=== PATIENT | female | born 1945 | race African-American/Black ===

== ENCOUNTER 2016-11-06 12:34 | Inpatient (IN) | payer MEDICARE, MEDICAID ==
[~2016-11-06] VITALS: Ht 160 cm; Wt 63.2 kg
[~2016-11-06 12:34] MED LIST: PANT40TA25 PO; TRAM50TA4 PO
[2016-11-06 13:24] LABS: EOSINOPHILS % (AUTO) 7.7 % (1.0-6.0); HEMATOCRIT 37.5 % (36-46); HEMOGLOBIN 12.5 g/dL (12.0-16.0); LYMPHOCYTES # (AUTO) 1.3 K/uL (1.0-4.8); LYMPHOCYTES % (AUTO) 23.4 % (22.0-44.0); MEAN CORPUSCULAR HGB CONC 33.3 G/dL (31.0-37.0); MEAN CORPUSCULAR VOLUME 87 fL (80-100); MONOCYTES # (AUTO) 0.7 K/uL (0.1-1.0); MONOCYTES % (AUTO) 13.3 % (2.0-9.0); NEUTROPHILS # (AUTO) 2.9 K/uL (1.8-7.7); NEUTROPHILS % (AUTO) 54.6 % (40.0-70.0); PLATELET COUNT (AUTO) 233 K/uL (150-450); RED CELL DISTRIBUTION WIDTH 13.9 % (11.5-14.5); WHITE BLOOD COUNT (AUTO) 5.4 K/uL (4.5-11.0)
[2016-11-06 13:35] LABS: INR 1.1 (0.9-1.1); PROTHROMBIN TIME 11.1 SEC (9.4-11.6)
[2016-11-06 13:41] LABS: ANION GAP 6 mmol/L (8-16); CALCIUM, TOTAL 9.9 mg/dL (8.8-10.5); CARBON DIOXIDE 28 mmol/L (22-29); CHLORIDE 101 mmol/L (98-107); CREATININE 0.78 mg/dL (0.60-1.30); GLOMERULAR FILTR. RATE CALC > 60 mL/min (>60); POTASSIUM 5.3 mmol/L (3.5-5.1); SODIUM SERUM 135 mmol/L (136-145); UREA NITROGEN, BLOOD 18 mg/dL (7-18)
[2016-11-06 13:49] LABS: ALANINE AMINOTRANSFERASE 26 U/L (12-78); ALBUMIN 3.8 g/dL (3.4-5.0); ASPARTATE AMINOTRANSFERASE 18 U/L (15-37); BILIRUBIN,TOTAL 0.4 mg/dL (0.1-1.0); TOTAL PROTEIN, SERUM 7.9 g/dL (6.4-8.2)
[2016-11-06 13:50] LABS: RBC MORPHOLOGY COMMENT NORMAL RBC MORPH
[2016-11-06 15:50] LABS: APPEARANCE,URINE CLEAR (CLEAR); GLUCOSE, URINE (UA) NEGATIVE (NEGATIVE); KETONES,URINE NEGATIVE (NEGATIVE); LEUKOCYTE ESTERASE ,URINE NEGATIVE (NEGATIVE); OCCULT BLOOD,URINE NEGATIVE (NEGATIVE); PH,URINE 6.5 (5.0-8.0); PROTEIN,URINE NEGATIVE (NEGATIVE)
[2016-11-06 15:52] LABS: ADD UA MICROSCOPIC NO
[2016-11-06] MEDS ORDERED: POTASSIUM CHLORIDE 20 MEQ ER TABLET PO ONE (16:45)
[2016-11-06] MEDS ORDERED: NITROGLYCERIN 2% (1 GM=INCH) PACKET TP ONE (17:45)
[2016-11-06] MEDS ORDERED: ASPIRIN 81 MG CHEWABLE TABLET PO ONE (17:45)
[2016-11-06] MEDS ORDERED: ACETAMINOPHEN 325 MG TABLET PO PRN (18:45)
[2016-11-06] MEDS ORDERED: BISACODYL 10 MG RECTAL RECTAL SUPPOSITORY PR PRN (18:45)
[2016-11-06] MEDS ORDERED: MAGNESIUM HYDROXIDE SUSPENSION 30 ML UDCUP PO PRN (18:45)
[2016-11-06] MEDS ORDERED: PANTOPRAZOLE SODIUM 40 MG DR TABLET PO ONE (18:45)
[2016-11-06] MEDS ORDERED: SODIUM POLYSTYRENE SULFONATE 15 GM/60 ML SUSPENSION BOTTLE PR ONE (18:45)
[2016-11-06] MEDS ORDERED: ONDANSETRON HCL 4 MG/2 ML VIAL IVP PRN (18:45)
[2016-11-06] MEDS ORDERED: ZOLPIDEM TARTRATE 5 MG TABLET PO PRN (18:45)
[2016-11-06] MEDS ORDERED: DICYCLOMINE HCL 10 MG/ML 2 ML AMP IM ONE (18:45)
[2016-11-06 18:51] LABS: ANION GAP 2 mmol/L (8-16); CALCIUM, TOTAL 9.3 mg/dL (8.8-10.5); CARBON DIOXIDE 28 mmol/L (22-29); CHLORIDE 100 mmol/L (98-107); CREATININE 0.82 mg/dL (0.60-1.30); GLOMERULAR FILTR. RATE CALC > 60 mL/min (>60); SODIUM SERUM 130 mmol/L (136-145); UREA NITROGEN, BLOOD 15 mg/dL (7-18)
[2016-11-06 18:57] LABS: ALANINE AMINOTRANSFERASE 27 U/L (12-78); ALBUMIN 3.7 g/dL (3.4-5.0); ASPARTATE AMINOTRANSFERASE 19 U/L (15-37); BILIRUBIN,TOTAL 0.5 mg/dL (0.1-1.0); TOTAL PROTEIN, SERUM 8.2 g/dL (6.4-8.2)
[2016-11-06] MEDS ORDERED: ONDANSETRON HCL 4 MG/2 ML VIAL IVP ONE (19:30)
[2016-11-06] MEDS ORDERED: MORPHINE SULFATE 4 MG/ML SYRINGE IVP ONE (19:30)
[2016-11-06] MEDS ORDERED: COMB5OS OU ×2 (21:14→21:19)
[2016-11-06] MEDS ORDERED: XALA2.5OS OU (21:15)
[2016-11-06 21:23] VITALS: BP 136/93
[2016-11-06] MEDS ORDERED: INFLUENZA VIRUS VACCINE QVS 2016-17 (3YR+)/PF 60 MCG/0.5 ML SYRINGE IM ONE (22:00)
[2016-11-06] MEDS ORDERED: -PHARMACY VACCINE NOTE- MISC ONE ×2 (22:00)
[2016-11-06] MEDS ORDERED: BARIUM SULFATE 0.1% SUSPENSION 450 ML BOTTLE ONE ×2 (23:12→23:13)
[2016-11-06 23:28] VITALS: BP 124/79
[2016-11-07] MEDS ORDERED: SODIUM CHLORIDE 0.9% 100 ML ONE (00:15)
[2016-11-07] MEDS ORDERED: IOVERSOL 350 MG/ML 100 ML VIAL ONE (00:15)
[2016-11-07] MEDS: HEPARIN SODIUM,PORCINE 5,000 UNITS/ML VIAL SQ SCH ×4 (00:34→23:07)
[2016-11-07 05:22] VITALS: BP 114/61
[2016-11-07 06:43] LABS: BASOPHILS % (AUTO) 0.6 % (0.0-2.0); EOSINOPHILS % (AUTO) 8.7 % (1.0-6.0); HEMATOCRIT 36.1 % (36-46); HEMOGLOBIN 11.7 g/dL (12.0-16.0); LYMPHOCYTES # (AUTO) 1.5 K/uL (1.0-4.8); LYMPHOCYTES % (AUTO) 32.5 % (22.0-44.0); MEAN CORPUSCULAR HEMOGLOBIN 28.5 pg (26.0-34.0); MEAN CORPUSCULAR HGB CONC 32.5 G/dL (31.0-37.0); MEAN CORPUSCULAR VOLUME 88 fL (80-100); MONOCYTES # (AUTO) 0.6 K/uL (0.1-1.0); MONOCYTES % (AUTO) 13.2 % (2.0-9.0); PLATELET COUNT (AUTO) 214 K/uL (150-450); RED BLOOD CELL COUNT(AUTO) 4.11 MIL/uL (4.00-5.20); RED CELL DISTRIBUTION WIDTH 13.9 % (11.5-14.5); WHITE BLOOD COUNT (AUTO) 4.5 K/uL (4.5-11.0)
[2016-11-07 06:55] LABS: ALANINE AMINOTRANSFERASE 24 U/L (12-78); ALBUMIN 3.2 g/dL (3.4-5.0); ANION GAP 5 mmol/L (8-16); ASPARTATE AMINOTRANSFERASE 15 U/L (15-37); BILIRUBIN,TOTAL 0.3 mg/dL (0.1-1.0); CALCIUM, TOTAL 8.5 mg/dL (8.8-10.5); CARBON DIOXIDE 30 mmol/L (22-29); CHLORIDE 102 mmol/L (98-107); CHOL/HDL RATIO 5.6 (3.9-5.7); CREATININE 0.98 mg/dL (0.60-1.30); GLOMERULAR FILTR. RATE CALC > 60 mL/min (>60); POTASSIUM 4.2 mmol/L (3.5-5.1); SODIUM SERUM 137 mmol/L (136-145); TOTAL PROTEIN, SERUM 7.3 g/dL (6.4-8.2); UREA NITROGEN, BLOOD 15 mg/dL (7-18)
[2016-11-07 07:14] VITALS: BP 124/78
[2016-11-07] MEDS: BRIMONIDINE/TIMOLOL 0.2-0.5% 5 ML OPHTHALMIC SOLUTION OU SCH ×2 (08:50→12:31)
[2016-11-07] MEDS ORDERED: PANTOPRAZOLE SODIUM 40 MG DR TABLET PO SCH (09:00)
[2016-11-07] MEDS: PANTOPRAZOLE SODIUM 40 MG/VIAL IVP SCH (10:30)
[2016-11-07 12:00] VITALS: BP 130/61
[2016-11-07 15:27] VITALS: BP 95/54
[2016-11-07 19:28] VITALS: BP 134/70
[2016-11-07] MEDS ORDERED: LATANOPROST 0.005% 2.5 ML OPHTHALMIC SOLUTION OU SCH (21:00)
[2016-11-08] VITALS (7 sets, daily range): BP systolic 99–155; BP diastolic 41–81
[2016-11-08] MEDS: HEPARIN SODIUM,PORCINE 5,000 UNITS/ML VIAL SQ SCH ×2 (07:27→16:00)
[2016-11-08] MEDS: BRIMONIDINE/TIMOLOL 0.2-0.5% 5 ML OPHTHALMIC SOLUTION OU SCH ×2 (07:30→12:21)
[2016-11-08] MEDS: PANTOPRAZOLE SODIUM 40 MG/VIAL IVP SCH (08:51)
[2016-11-08] MEDS ORDERED: SODIUM CHLORIDE 0.9% 1,000 ML IV ONE ×2 (10:00→10:12)
[2016-11-08] MEDS: OxyCODONE HCL/ACETAMINOPHEN 5-325 MG TABLET PO PRN ×2 (12:59→18:03)
[2016-11-08] MEDS ORDERED: PROPOFOL 1% 20 ML VIAL IVP ONE (18:49)
[2016-11-09 14:35] LABS: H. PYLORI ANTIBODY IGM <9.0 units (0.0-8.9)
== END 2016-11-08 18:50 | disposition home or self-care (01) | DRG 392 ==
LOC: EMS 12:36 → 5S 18:43
PROVIDERS: ADMIT Hospitalist; ATTEND Hospitalist
PROC: 0DB68ZX Excision of Stomach, Via Natural or Artificial Opening Endoscopic, Diagnostic (ICD-10-PCS; principal; 2016-11-08 11:00)
DX: K21.9 Gastro-esophageal reflux disease without esophagitis (principal); E87.1 Hypo-osmolality and hyponatremia; E87.5 Hyperkalemia; J44.9 Chronic obstructive pulmonary disease, unspecified; J45.909 Unspecified asthma, uncomplicated; H40.9 Unspecified glaucoma; K29.70 Gastritis, unspecified, without bleeding; R10.9 Unspecified abdominal pain; E78.00 Pure hypercholesterolemia, unspecified; E78.5 Hyperlipidemia, unspecified; I10 Essential (primary) hypertension; K25.9 Gastric ulcer, unspecified as acute or chronic, without hemorrhage or perforation; M19.90 Unspecified osteoarthritis, unspecified site; G43.909 Migraine, unspecified, not intractable, without status migrainosus; Z87.891 Personal history of nicotine dependence; Z88.0 Allergy status to penicillin; Z98.49 Cataract extraction status, unspecified eye; Z98.890 Other specified postprocedural states
CPT/HCPCS: 74177; 86677; 88305; 88312; 90471; 93005; 93306; 96372; 99285; C9113; J0500; J1644; J2270; J2405; J2704; J7030; J7050

== ENCOUNTER 2017-04-08 06:35 | Emergency (ER) | payer MEDICARE, OTHER ==
[~2017-04-08] VITALS: Ht 160 cm; Wt 61.8 kg
[~2017-04-08 06:35] MED LIST changes: +COMB5OS OU; -PANT40TA25 PO; -TRAM50TA4 PO; +XALA2.5OS OU
[2017-04-08 08:30] VITALS: BP 112/71
[2017-04-08] MEDS ORDERED: AZIT250T6 PO (16:39)
== END 2017-04-08 09:16 | disposition home or self-care (01) ==
LOC: EMS 06:36
DX: J20.9 Acute bronchitis, unspecified (principal); J44.9 Chronic obstructive pulmonary disease, unspecified; J45.909 Unspecified asthma, uncomplicated; I10 Essential (primary) hypertension; E78.00 Pure hypercholesterolemia, unspecified; K21.9 Gastro-esophageal reflux disease without esophagitis; Z88.0 Allergy status to penicillin
CPT/HCPCS: 99283

== ENCOUNTER 2017-04-08 16:27 | Emergency (ER) | payer MEDICARE, OTHER ==
[~2017-04-08] VITALS: Ht 160 cm; Wt 6.1 kg
[2017-04-08] MEDS ORDERED: AZIT250T6 PO (16:39)
[2017-04-08] MEDS ORDERED: DEXAMETHASONE SOD PHOS 4 MG/ML VIAL IM ONE (17:15)
[2017-04-08 18:45] VITALS: BP 131/82
== END 2017-04-08 18:59 | disposition home or self-care (01) ==
LOC: EMS 16:28
DX: J40 Bronchitis, not specified as acute or chronic (principal); J06.9 Acute upper respiratory infection, unspecified; J44.9 Chronic obstructive pulmonary disease, unspecified; K21.9 Gastro-esophageal reflux disease without esophagitis; I10 Essential (primary) hypertension; E78.00 Pure hypercholesterolemia, unspecified; G43.909 Migraine, unspecified, not intractable, without status migrainosus; J45.909 Unspecified asthma, uncomplicated; I20.9 Angina pectoris, unspecified; Z88.0 Allergy status to penicillin
CPT/HCPCS: 96372; 99283; J1100

== ENCOUNTER 2017-08-08 05:55 | Emergency (ER) | payer MEDICARE, OTHER ==
[~2017-08-08] VITALS: Ht 160 cm; Wt 59.1 kg
[~2017-08-08 05:55] MED LIST changes: +AZIT250T9 PO
[2017-08-08] MEDS ORDERED: KETOROLAC TROMETHAMINE 60 MG/2 ML VIAL IM ONE (07:15)
[2017-08-08] MEDS ORDERED: AZITHROMYCIN 250 MG TABLET PO ONE (07:15)
[2017-08-08 07:39] VITALS: BP 149/99
== END 2017-08-08 08:27 | disposition home or self-care (01) ==
LOC: EMS 05:59
DX: J02.9 Acute pharyngitis, unspecified (principal); E78.00 Pure hypercholesterolemia, unspecified; I10 Essential (primary) hypertension; J44.9 Chronic obstructive pulmonary disease, unspecified; K21.9 Gastro-esophageal reflux disease without esophagitis; Z88.0 Allergy status to penicillin
CPT/HCPCS: 96372; 99283; J1885

== ENCOUNTER 2017-08-15 08:53 | Inpatient (IN) | payer MEDICARE, OTHER ==
[~2017-08-15] VITALS: Ht 160 cm; Wt 64.1 kg
[~2017-08-15 08:53] MED LIST changes: -AZIT250T9 PO
[2017-08-15] MEDS ORDERED: IPRATROPIUM BROMIDE 0.5 MG/2.5 ML NEB SOLUTION NEB ONE ×2 (09:00→12:00)
[2017-08-15] MEDS ORDERED: ALBUTEROL SULFATE 5 MG/ML 20 ML NEB SOLN [BULK] NEB ONE (09:00)
[2017-08-15 09:53] LABS: BASOPHILS % (AUTO) 0.8 % (0.0-2.0); EOSINOPHILS % (AUTO) 4.8 % (1.0-6.0); HEMATOCRIT 39.6 % (36-46); HEMOGLOBIN 13.4 g/dL (12.0-16.0); LYMPHOCYTES # (AUTO) 1.9 K/uL (1.0-4.8); LYMPHOCYTES % (AUTO) 27.4 % (22.0-44.0); MEAN CORPUSCULAR HEMOGLOBIN 29.4 pg (26.0-34.0); MEAN CORPUSCULAR HGB CONC 33.8 G/dL (31.0-37.0); MEAN CORPUSCULAR VOLUME 87 fL (80-100); MONOCYTES # (AUTO) 0.5 K/uL (0.1-1.0); MONOCYTES % (AUTO) 7.6 % (2.0-9.0); NEUTROPHILS # (AUTO) 4.1 K/uL (1.8-7.7); NEUTROPHILS % (AUTO) 59.4 % (40.0-70.0); PLATELET COUNT (AUTO) 263 K/uL (150-450); RED BLOOD CELL COUNT(AUTO) 4.55 MIL/uL (4.00-5.20); RED CELL DISTRIBUTION WIDTH 13.1 % (11.5-14.5); WHITE BLOOD COUNT (AUTO) 6.9 K/uL (4.5-11.0)
[2017-08-15 10:00] LABS: ANION GAP 6 mmol/L (8-16); CALCIUM, TOTAL 9.3 mg/dL (8.8-10.5); CARBON DIOXIDE 29 mmol/L (22-29); CHLORIDE 102 mmol/L (98-107); CREATININE 0.77 mg/dL (0.60-1.30); GLOMERULAR FILTR. RATE CALC > 60 mL/min (>60); SODIUM SERUM 137 mmol/L (136-145); UREA NITROGEN, BLOOD 14 mg/dL (7-18)
[2017-08-15 10:06] LABS: PROTHROMBIN TIME 10.9 SEC (9.4-11.6)
[2017-08-15 10:21] LABS: B-TYPE NATRIURETIC PEPTIDE 54 pg/mL (0-100)
[2017-08-15 10:25] LABS: ALANINE AMINOTRANSFERASE 27 U/L (12-78); ALBUMIN 3.8 g/dL (3.4-5.0); ASPARTATE AMINOTRANSFERASE 18 U/L (15-37); BILIRUBIN,TOTAL 0.2 mg/dL (0.1-1.0); CREATINE KINASE MB 1.6 ng/mL (0-5); CREATINE KINASE, TOTAL 97 U/L (26-192); TOTAL PROTEIN, SERUM 8.9 g/dL (6.4-8.2)
[2017-08-15 10:35] LABS: APPEARANCE,URINE CLEAR (CLEAR); GLUCOSE, URINE (UA) NEGATIVE (NEGATIVE); KETONES,URINE NEGATIVE (NEGATIVE); LEUKOCYTE ESTERASE ,URINE NEGATIVE (NEGATIVE); OCCULT BLOOD,URINE NEGATIVE (NEGATIVE); PH,URINE 5.5 (5.0-8.0); PROTEIN,URINE NEGATIVE (NEGATIVE)
[2017-08-15 10:39] LABS: ADD UA MICROSCOPIC NO
[2017-08-15] MEDS ORDERED: ALBUTEROL SULFATE 2.5 MG/0.5 ML NEB SOLUTION NEB ONE (12:00)
[2017-08-15] MEDS ORDERED: PredniSONE 20 MG TABLET PO ONE (12:00)
[2017-08-15] MEDS ORDERED: AZITHROMYCIN 500 MG/NS 250 ML IV ONE (14:00)
[2017-08-15] MEDS ORDERED: LEVOFLOXACIN 750 MG/D5% WATER 150 ML IV ONE (14:00)
[2017-08-15 14:58] VITALS: BP 153/87
[2017-08-15] MEDS ORDERED: MAGNESIUM HYDROXIDE SUSPENSION 30 ML UDCUP PO PRN (15:45)
[2017-08-15] MEDS ORDERED: *CLINICAL-LEVOFLOXACIN IVPB DOSING CLINICAL ONE ×2 (15:45)
[2017-08-15] MEDS ORDERED: ZOLPIDEM TARTRATE 5 MG TABLET PO PRN (15:45)
[2017-08-15] MEDS ORDERED: BISACODYL 10 MG RECTAL RECTAL SUPPOSITORY PR PRN (15:45)
[2017-08-15] MEDS ORDERED: HYDROCODONE/ACETAMINOPHEN 5-325 MG TABLET PO PRN (15:45)
[2017-08-15] MEDS ORDERED: IPRATROPIUM BROMIDE 0.5 MG/2.5 ML NEB SOLUTION NEB PRN (15:45)
[2017-08-15] MEDS ORDERED: ACETAMINOPHEN 325 MG TABLET PO PRN (15:45)
[2017-08-15] MEDS ORDERED: MORPHINE SULFATE 2 MG/ML SYRINGE IVP PRN (15:45)
[2017-08-15] MEDS ORDERED: ONDANSETRON HCL 4 MG/2 ML VIAL IVP PRN (15:45)
[2017-08-15] MEDS ORDERED: ALBUTEROL SULFATE 2.5 MG/0.5 ML NEB SOLUTION NEB PRN (15:45)
[2017-08-15] MEDS: HEPARIN SODIUM,PORCINE 5,000 UNITS/ML VIAL SQ SCH ×2 (16:29→23:54)
[2017-08-15] MEDS: BENZONATATE 100 MG CAPSULE PO SCH ×2 (16:29→20:11)
[2017-08-15] MEDS ORDERED: INFLUENZA VIRUS VACCINE QVS 2017-18 (3YR+)/PF 60 MCG/0.5 ML SYRINGE IM ONE (17:00)
[2017-08-15] MEDS ORDERED: SODIUM CHLORIDE 0.9% 50 ML ONE (17:11)
[2017-08-15 18:39] LABS: INFLUENZA TYPE B NEGATIVE FOR TYPE B (NEGATIVE)
[2017-08-15] MEDS: IPRATROPIUM BROMIDE 0.5 MG/2.5 ML NEB SOLUTION NEB SCH (20:00)
[2017-08-15] MEDS: ALBUTEROL SULFATE 2.5 MG/0.5 ML NEB SOLUTION NEB SCH (20:00)
[2017-08-15 20:07] VITALS: BP 140/73
[2017-08-15] MEDS: DOCUSATE SODIUM 100 MG CAPSULE PO SCH (20:11)
[2017-08-15] MEDS: GuaiFENesin SR 600 MG ER TABLET PO SCH (20:11)
[2017-08-15] MEDS: LATANOPROST 0.005% 2.5 ML OPHTHALMIC SOLUTION OU SCH (20:11)
[2017-08-15] MEDS: BUDESONIDE 0.5 MG/2 ML NEB SOLUTION NEB SCH (21:00)
[2017-08-15] MEDS: MethylPREDNISolone SOD SUCC 125 MG/2 ML VIAL IVP SCH (23:54)
[2017-08-16 00:23] VITALS: BP 106/54
[2017-08-16] MEDS: ALBUTEROL SULFATE 2.5 MG/0.5 ML NEB SOLUTION NEB SCH ×4 (02:20→20:41)
[2017-08-16] MEDS: IPRATROPIUM BROMIDE 0.5 MG/2.5 ML NEB SOLUTION NEB SCH ×4 (02:20→20:41)
[2017-08-16] MEDS: MethylPREDNISolone SOD SUCC 125 MG/2 ML VIAL IVP SCH (05:36)
[2017-08-16 07:12] VITALS: BP 155/90
[2017-08-16] MEDS: GuaiFENesin SR 600 MG ER TABLET PO SCH ×2 (08:01→20:46)
[2017-08-16] MEDS: BENZONATATE 100 MG CAPSULE PO SCH ×3 (08:01→20:46)
[2017-08-16] MEDS: DOCUSATE SODIUM 100 MG CAPSULE PO SCH ×2 (08:01→20:46)
[2017-08-16] MEDS: HEPARIN SODIUM,PORCINE 5,000 UNITS/ML VIAL SQ SCH ×3 (08:01→23:33)
[2017-08-16] MEDS: PANTOPRAZOLE SODIUM 40 MG DR TABLET PO SCH (08:01)
[2017-08-16] MEDS: BUDESONIDE 0.5 MG/2 ML NEB SOLUTION NEB SCH ×2 (08:39→20:54)
[2017-08-16 11:53] VITALS: BP 145/85
[2017-08-16] MEDS: MethylPREDNISolone SOD SUCC 40 MG/ML VIAL IVP SCH ×3 (11:55→23:33)
[2017-08-16] MEDS: LEVOFLOXACIN 750 MG/D5% WATER 150 ML IV SCH (11:55)
[2017-08-16 15:42] VITALS: BP 144/79
[2017-08-16 19:39] VITALS: BP 144/81
[2017-08-16] MEDS: LATANOPROST 0.005% 2.5 ML OPHTHALMIC SOLUTION OU SCH (20:46)
[2017-08-16 23:21] VITALS: BP 155/92
[2017-08-17] MEDS: ALBUTEROL SULFATE 2.5 MG/0.5 ML NEB SOLUTION NEB SCH ×4 (02:09→19:44)
[2017-08-17] MEDS: IPRATROPIUM BROMIDE 0.5 MG/2.5 ML NEB SOLUTION NEB SCH ×4 (02:09→19:44)
[2017-08-17 04:32] VITALS: BP 130/79
[2017-08-17] MEDS: MethylPREDNISolone SOD SUCC 40 MG/ML VIAL IVP SCH (05:30)
[2017-08-17] MEDS: BUDESONIDE 0.5 MG/2 ML NEB SOLUTION NEB SCH ×2 (07:21→19:43)
[2017-08-17 07:32] VITALS: BP 150/78
[2017-08-17] MEDS: HEPARIN SODIUM,PORCINE 5,000 UNITS/ML VIAL SQ SCH ×3 (08:37→23:29)
[2017-08-17] MEDS: GuaiFENesin SR 600 MG ER TABLET PO SCH (08:37)
[2017-08-17] MEDS: DOCUSATE SODIUM 100 MG CAPSULE PO SCH ×2 (08:37→20:16)
[2017-08-17] MEDS: PANTOPRAZOLE SODIUM 40 MG DR TABLET PO SCH (08:37)
[2017-08-17] MEDS: BENZONATATE 100 MG CAPSULE PO SCH ×3 (08:37→20:17)
[2017-08-17] MEDS: PredniSONE 10 MG TABLET PO SCH (11:28)
[2017-08-17 11:34] VITALS: BP 116/80
[2017-08-17] MEDS ORDERED: SODIUM CHLORIDE 0.9% 250 ML IV ONE (11:59)
[2017-08-17] MEDS: LEVOFLOXACIN 750 MG/D5% WATER 150 ML IV SCH (12:02)
[2017-08-17 15:18] VITALS: BP 125/79
[2017-08-17] MEDS: HYDROCODONE/CHLORPHEN POLIS 10-8 MG/5 ML ORAL.SYG PO SCH ×2 (16:44→20:17)
[2017-08-17 19:34] VITALS: BP 147/77
[2017-08-17] MEDS: LATANOPROST 0.005% 2.5 ML OPHTHALMIC SOLUTION OU SCH (20:22)
[2017-08-18] VITALS (7 sets, daily range): BP systolic 132–173; BP diastolic 79–98
[2017-08-18] MEDS: ALBUTEROL SULFATE 2.5 MG/0.5 ML NEB SOLUTION NEB SCH ×4 (02:56→20:30)
[2017-08-18] MEDS: IPRATROPIUM BROMIDE 0.5 MG/2.5 ML NEB SOLUTION NEB SCH ×4 (02:56→20:30)
[2017-08-18 06:05] LABS: BASOPHILS % (AUTO) 0.9 % (0.0-2.0); EOSINOPHILS % (AUTO) 0 % (1.0-6.0); HEMATOCRIT 36.9 % (36-46); HEMOGLOBIN 12.3 g/dL (12.0-16.0); LYMPHOCYTES # (AUTO) 2.8 K/uL (1.0-4.8); LYMPHOCYTES % (AUTO) 22.8 % (22.0-44.0); MEAN CORPUSCULAR HEMOGLOBIN 29.5 pg (26.0-34.0); MEAN CORPUSCULAR HGB CONC 33.4 G/dL (31.0-37.0); MEAN CORPUSCULAR VOLUME 88 fL (80-100); MONOCYTES # (AUTO) 1.1 K/uL (0.1-1.0); MONOCYTES % (AUTO) 9.1 % (2.0-9.0); NEUTROPHILS # (AUTO) 8.4 K/uL (1.8-7.7); NEUTROPHILS % (AUTO) 67.2 % (40.0-70.0); PLATELET COUNT (AUTO) 248 K/uL (150-450); RED BLOOD CELL COUNT(AUTO) 4.17 MIL/uL (4.00-5.20); RED CELL DISTRIBUTION WIDTH 13.7 % (11.5-14.5); WHITE BLOOD COUNT (AUTO) 12.5 K/uL (4.5-11.0)
[2017-08-18 06:19] LABS: ANION GAP 6 mmol/L (8-16); CALCIUM, TOTAL 9.4 mg/dL (8.8-10.5); CARBON DIOXIDE 27 mmol/L (22-29); CHLORIDE 104 mmol/L (98-107); CREATININE 0.99 mg/dL (0.60-1.30); GLOMERULAR FILTR. RATE CALC > 60 mL/min (>60); SODIUM SERUM 137 mmol/L (136-145); UREA NITROGEN, BLOOD 28 mg/dL (7-18)
[2017-08-18] MEDS: HEPARIN SODIUM,PORCINE 5,000 UNITS/ML VIAL SQ SCH ×3 (07:46→23:26)
[2017-08-18] MEDS: PANTOPRAZOLE SODIUM 40 MG DR TABLET PO SCH (07:47)
[2017-08-18] MEDS: DOCUSATE SODIUM 100 MG CAPSULE PO SCH ×2 (07:47→20:32)
[2017-08-18] MEDS: PredniSONE 10 MG TABLET PO SCH (07:47)
[2017-08-18] MEDS: HYDROCODONE/CHLORPHEN POLIS 10-8 MG/5 ML ORAL.SYG PO SCH ×2 (07:47→20:32)
[2017-08-18] MEDS: BENZONATATE 100 MG CAPSULE PO SCH ×3 (07:47→20:32)
[2017-08-18] MEDS: BUDESONIDE 0.5 MG/2 ML NEB SOLUTION NEB SCH ×2 (08:08→20:31)
[2017-08-18] MEDS: LEVOFLOXACIN 750 MG/D5% WATER 150 ML IV SCH (12:03)
[2017-08-18] MEDS: PROMETHAZINE HCL/CODEINE 6.25-10MG/5ML SYRUP UDCUP PO SCH (20:31)
[2017-08-18] MEDS: LATANOPROST 0.005% 2.5 ML OPHTHALMIC SOLUTION OU SCH (20:32)
[2017-08-19] MEDS: ALBUTEROL SULFATE 2.5 MG/0.5 ML NEB SOLUTION NEB SCH ×3 (01:47→14:01)
[2017-08-19] MEDS: IPRATROPIUM BROMIDE 0.5 MG/2.5 ML NEB SOLUTION NEB SCH ×3 (01:47→14:01)
[2017-08-19 05:07] VITALS: BP 147/92
[2017-08-19 07:14] VITALS: BP 137/67
[2017-08-19] MEDS: BUDESONIDE 0.5 MG/2 ML NEB SOLUTION NEB SCH (08:01)
[2017-08-19] MEDS: DOCUSATE SODIUM 100 MG CAPSULE PO SCH (08:47)
[2017-08-19] MEDS: HEPARIN SODIUM,PORCINE 5,000 UNITS/ML VIAL SQ SCH ×2 (08:47→16:19)
[2017-08-19] MEDS: PANTOPRAZOLE SODIUM 40 MG DR TABLET PO SCH (08:49)
[2017-08-19] MEDS: BENZONATATE 100 MG CAPSULE PO SCH ×2 (08:49→16:19)
[2017-08-19] MEDS: PredniSONE 10 MG TABLET PO SCH (08:49)
[2017-08-19] MEDS: PROMETHAZINE HCL/CODEINE 6.25-10MG/5ML SYRUP UDCUP PO SCH ×2 (08:50→16:19)
[2017-08-19] MEDS: HYDROCODONE/CHLORPHEN POLIS 10-8 MG/5 ML ORAL.SYG PO SCH (08:50)
[2017-08-19 11:18] VITALS: BP 132/68
[2017-08-19] MEDS: LEVOFLOXACIN 750 MG/D5% WATER 150 ML IV SCH (12:13)
[2017-08-19 15:04] VITALS: BP 140/82
== END 2017-08-19 18:30 | disposition home or self-care (01) | DRG 189 ==
LOC: EMS 08:54 → 5S 14:13
PROVIDERS: ADMIT Internal Medicine; ATTEND Internal Medicine
PROC: 3E0234Z Introduction of Serum, Toxoid and Vaccine into Muscle, Percutaneous Approach (ICD-10-PCS; principal; 2017-08-15)
DX: J96.01 Acute respiratory failure with hypoxia (principal); J44.0 Chronic obstructive pulmonary disease with (acute) lower respiratory infection; J44.1 Chronic obstructive pulmonary disease with (acute) exacerbation; J98.11 Atelectasis; E78.5 Hyperlipidemia, unspecified; G43.909 Migraine, unspecified, not intractable, without status migrainosus; I10 Essential (primary) hypertension; K21.9 Gastro-esophageal reflux disease without esophagitis; M19.90 Unspecified osteoarthritis, unspecified site; H40.9 Unspecified glaucoma; F10.11 Alcohol abuse, in remission; K44.9 Diaphragmatic hernia without obstruction or gangrene; G47.33 Obstructive sleep apnea (adult) (pediatric); J20.9 Acute bronchitis, unspecified; R91.1 Solitary pulmonary nodule; Z88.0 Allergy status to penicillin; Z79.899 Other long term (current) drug therapy; Z98.49 Cataract extraction status, unspecified eye; Z87.891 Personal history of nicotine dependence; Z23 Encounter for immunization
CPT/HCPCS: 71250; 87804; 90471; 93005; 94640; 94644; 96374; 99285; J0456; J1644; J1956; J2920; J2930; J7050

== ENCOUNTER 2018-02-19 10:40 | Emergency (ER) | payer MEDICARE, OTHER ==
[~2018-02-19] VITALS: Ht 160 cm; Wt 67.3 kg
[~2018-02-19 10:40] MED LIST changes: -COMB5OS OU
[2018-02-19 12:35] LABS: APPEARANCE,URINE CLEAR (CLEAR); BILIRUBIN,URINE NEGATIVE (NEGATIVE); GLUCOSE, URINE (UA) NEGATIVE (NEGATIVE); KETONES,URINE NEGATIVE (NEGATIVE); LEUKOCYTE ESTERASE ,URINE NEGATIVE (NEGATIVE); NITRATE,URINE NEGATIVE (NEGATIVE); OCCULT BLOOD,URINE NEGATIVE (NEGATIVE); PH,URINE 5.5 (5.0-8.0); PROTEIN,URINE NEGATIVE (NEGATIVE); UROBILINOGEN,URINE 0.2 mg/dL (<=1.0)
[2018-02-19 12:36] LABS: EOSINOPHILS % (AUTO) 5.8 % (1.0-6.0); HEMATOCRIT 36.5 % (36-46); HEMOGLOBIN 12.4 g/dL (12.0-16.0); LYMPHOCYTES # (AUTO) 1.6 K/uL (1.0-4.8); MEAN CORPUSCULAR HEMOGLOBIN 29.2 pg (26.0-34.0); MEAN CORPUSCULAR HGB CONC 33.9 G/dL (31.0-37.0); MEAN CORPUSCULAR VOLUME 86 fL (80-100); MONOCYTES # (AUTO) 0.8 K/uL (0.1-1.0); MONOCYTES % (AUTO) 15.6 % (2.0-9.0); NEUTROPHILS # (AUTO) 2.5 K/uL (1.8-7.7); NEUTROPHILS % (AUTO) 46.6 % (40.0-70.0); PLATELET COUNT (AUTO) 278 K/uL (150-450); RED BLOOD CELL COUNT(AUTO) 4.24 MIL/uL (4.00-5.20); RED CELL DISTRIBUTION WIDTH 13.5 % (11.5-14.5)
[2018-02-19 12:55] LABS: CALCIUM, TOTAL 9.3 mg/dL (8.8-10.5); CREATININE 1.09 mg/dL (0.60-1.30); POTASSIUM 4.2 mmol/L (3.5-5.1)
[2018-02-19 13:01] LABS: ALBUMIN 3.8 g/dL (3.4-5.0); BILIRUBIN,TOTAL 0.4 mg/dL (0.1-1.0); TOTAL PROTEIN, SERUM 8.1 g/dL (6.4-8.2)
[2018-02-19 13:09] LABS: PROTHROMBIN TIME 10.5 SEC (9.4-11.6)
[2018-02-19] MEDS ORDERED: PANTOPRAZOLE SODIUM 80 MG in SODIUM CHLORIDE 0.9% 100 ML IV SCH (14:00)
[2018-02-19] MEDS ORDERED: MORPHINE SULFATE 4 MG/ML SYRINGE IVP ONE (14:00)
[2018-02-19 17:13] VITALS: BP 137/88
[2018-02-19] MEDS ORDERED: ONDANSETRON HCL 4 MG/2 ML VIAL IVP ONE (17:15)
== END 2018-02-19 17:14 | disposition short-term general hospital (02) ==
LOC: EMS 10:42
DX: K92.2 Gastrointestinal hemorrhage, unspecified (principal); J45.909 Unspecified asthma, uncomplicated; J44.9 Chronic obstructive pulmonary disease, unspecified; K21.9 Gastro-esophageal reflux disease without esophagitis; E78.00 Pure hypercholesterolemia, unspecified; I10 Essential (primary) hypertension; G43.909 Migraine, unspecified, not intractable, without status migrainosus; I20.9 Angina pectoris, unspecified; Z88.0 Allergy status to penicillin
CPT/HCPCS: 36415; 80053; 81003; 82271; 83690; 84484; 85025; 85610; 86850; 86900; 86901; 93005; 96365; 96366; 96375; 99285; C9113; J2270; J2405; J7050

== ENCOUNTER 2018-03-16 03:48 | Emergency (ER) | payer MEDICARE, OTHER ==
[~2018-03-16] VITALS: Ht 157.5 cm; Wt 72.0 kg
[2018-03-16] MEDS ORDERED: HYDR25TA PO (04:14)
[2018-03-16] MEDS ORDERED: MONT10TA21 PO (04:14)
[2018-03-16] MEDS ORDERED: GABA-531 PO (04:14)
[2018-03-16] MEDS ORDERED: RANI150T7 PO (04:14)
[2018-03-16] MEDS ORDERED: IBUP-2070 PO (04:14)
[2018-03-16] MEDS ORDERED: BACL10TA PO (04:14)
[2018-03-16] MEDS ORDERED: OMEP20 PO (04:14)
[2018-03-16] MEDS ORDERED: ACET-2902 PO (04:14)
[2018-03-16] MEDS ORDERED: ONDANSETRON HCL 4 MG/2 ML VIAL IVP ONE (04:15)
[2018-03-16] MEDS ORDERED: DIAZEPAM 5 MG TABLET PO ONE (04:15)
[2018-03-16 04:46] LABS: BASOPHILS % (AUTO) 0.8 % (0.0-2.0); EOSINOPHILS % (AUTO) 6.1 % (1.0-6.0); HEMATOCRIT 33.8 % (36-46); HEMOGLOBIN 11.4 g/dL (12.0-16.0); LYMPHOCYTES # (AUTO) 1.3 K/uL (1.0-4.8); LYMPHOCYTES % (AUTO) 21.8 % (22.0-44.0); MEAN CORPUSCULAR HEMOGLOBIN 29.8 pg (26.0-34.0); MEAN CORPUSCULAR HGB CONC 33.8 G/dL (31.0-37.0); MEAN CORPUSCULAR VOLUME 88 fL (80-100); MONOCYTES # (AUTO) 0.7 K/uL (0.1-1.0); MONOCYTES % (AUTO) 11.8 % (2.0-9.0); NEUTROPHILS # (AUTO) 3.6 K/uL (1.8-7.7); NEUTROPHILS % (AUTO) 59.5 % (40.0-70.0); PLATELET COUNT (AUTO) 231 K/uL (150-450); RED BLOOD CELL COUNT(AUTO) 3.84 MIL/uL (4.00-5.20); RED CELL DISTRIBUTION WIDTH 14.2 % (11.5-14.5)
[2018-03-16 04:56] LABS: ANION GAP 5 mmol/L (8-16); CALCIUM, TOTAL 8.8 mg/dL (8.8-10.5); CARBON DIOXIDE 27 mmol/L (22-29); CHLORIDE 104 mmol/L (98-107); CREATININE 0.97 mg/dL (0.60-1.30); GLUCOSE,RANDOM 120 mg/dL (70-110); POTASSIUM 3.9 mmol/L (3.5-5.1); SODIUM SERUM 136 mmol/L (136-145); UREA NITROGEN, BLOOD 16 mg/dL (7-18)
[2018-03-16 05:02] LABS: ALANINE AMINOTRANSFERASE 31 U/L (12-78); ALBUMIN 3.4 g/dL (3.4-5.0); ALKALINE PHOSPHATASE 57 U/L (46-116); ASPARTATE AMINOTRANSFERASE 21 U/L (15-37); BILIRUBIN,TOTAL 0.4 mg/dL (0.1-1.0); LIPASE 284 U/L (73-393); TOTAL PROTEIN, SERUM 7.5 g/dL (6.4-8.2)
[2018-03-16 05:05] LABS: GLOMERULAR FILTR. RATE CALC > 60 mL/min (>60)
[2018-03-16 05:50] VITALS: BP 132/77
== END 2018-03-16 06:14 | disposition home or self-care (01) ==
LOC: EMS 03:49
DX: R42 Dizziness and giddiness (principal); R11.2 Nausea with vomiting, unspecified; I10 Essential (primary) hypertension; G43.909 Migraine, unspecified, not intractable, without status migrainosus; E78.00 Pure hypercholesterolemia, unspecified; J44.9 Chronic obstructive pulmonary disease, unspecified; K21.9 Gastro-esophageal reflux disease without esophagitis; M19.90 Unspecified osteoarthritis, unspecified site; Z87.891 Personal history of nicotine dependence
CPT/HCPCS: 36415; 71045; 80053; 83690; 84484; 85025; 93005; 96374; 99285; J2405

== ENCOUNTER 2018-07-31 07:14 | Emergency (ER) | payer MEDICARE, MEDICAID ==
[~2018-07-31] VITALS: Ht 160 cm; Wt 67.3 kg
[~2018-07-31 07:14] MED LIST changes: +ACET-2902 PO; +BACL10TA PO; +GABA-531 PO; +HYDR25TA PO; +IBUP-2070 PO; +MONT10TA21 PO; +OMEP20 PO; +RANI150T7 PO
[2018-07-31 08:41] LABS: EOSINOPHILS % (AUTO) 5.9 % (1.0-6.0); HEMOGLOBIN 13.1 g/dL (12.0-16.0); LYMPHOCYTES # (AUTO) 1.2 K/uL (1.0-4.8); LYMPHOCYTES % (AUTO) 20.8 % (22.0-44.0); MEAN CORPUSCULAR HEMOGLOBIN 29.3 pg (26.0-34.0); MEAN CORPUSCULAR HGB CONC 33.5 G/dL (31.0-37.0); MEAN CORPUSCULAR VOLUME 87 fL (80-100); MONOCYTES # (AUTO) 0.6 K/uL (0.1-1.0); MONOCYTES % (AUTO) 10.7 % (2.0-9.0); NEUTROPHILS # (AUTO) 3.5 K/uL (1.8-7.7); NEUTROPHILS % (AUTO) 61.6 % (40.0-70.0); PLATELET COUNT (AUTO) 216 K/uL (150-450); RED BLOOD CELL COUNT(AUTO) 4.47 MIL/uL (4.00-5.20); RED CELL DISTRIBUTION WIDTH 13.9 % (11.5-14.5)
[2018-07-31 08:54] LABS: ANION GAP 6 mmol/L (8-16); CALCIUM, TOTAL 8.9 mg/dL (8.8-10.5); CARBON DIOXIDE 29 mmol/L (22-29); CHLORIDE 105 mmol/L (98-107); CREATININE 1.07 mg/dL (0.60-1.30); GLUCOSE,RANDOM 75 mg/dL (70-110); POTASSIUM 3.9 mmol/L (3.5-5.1); SODIUM SERUM 140 mmol/L (136-145); UREA NITROGEN, BLOOD 16 mg/dL (7-18)
[2018-07-31 08:56] LABS: GLOMERULAR FILTR. RATE CALC > 60 mL/min (>60)
[2018-07-31 08:59] LABS: ALANINE AMINOTRANSFERASE 22 U/L (12-78); ALBUMIN 3.5 g/dL (3.4-5.0); ALKALINE PHOSPHATASE 73 U/L (46-116); ASPARTATE AMINOTRANSFERASE 18 U/L (15-37); BILIRUBIN,TOTAL 0.3 mg/dL (0.1-1.0); LIPASE 350 U/L (73-393)
[2018-07-31 10:30] LABS: APPEARANCE,URINE CLEAR (CLEAR); BACTERIA,URINE None Seen /HPF (None Seen); BILIRUBIN,URINE NEGATIVE (NEGATIVE); GLUCOSE, URINE (UA) NEGATIVE (NEGATIVE); KETONES,URINE NEGATIVE (NEGATIVE); LEUKOCYTE ESTERASE ,URINE NEGATIVE (NEGATIVE); NITRATE,URINE NEGATIVE (NEGATIVE); OCCULT BLOOD,URINE NEGATIVE (NEGATIVE); PH,URINE 6.5 (5.0-8.0); PROTEIN,URINE NEGATIVE (NEGATIVE); RBC,URINE None Seen /HPF (0-2); UROBILINOGEN,URINE 0.2 mg/dL (<=1.0); WBC,URINE None Seen /HPF (0-5)
[2018-07-31] MEDS ORDERED: MORPHINE SULFATE 4 MG/ML SYRINGE IVP ONE (11:15)
[2018-07-31] MEDS ORDERED: ONDANSETRON HCL 4 MG/2 ML VIAL IVP ONE (11:15)
[2018-07-31] MEDS ORDERED: ACET-66 PO (12:58)
[2018-07-31] MEDS ORDERED: KETOROLAC TROMETHAMINE 30 MG/ML VIAL IVP ONE (13:00)
[2018-07-31 13:19] VITALS: BP 153/90
== END 2018-07-31 13:27 | disposition home or self-care (01) ==
LOC: EMS 07:16
DX: R10.32 Left lower quadrant pain (principal); I20.9 Angina pectoris, unspecified; I25.10 Atherosclerotic heart disease of native coronary artery without angina pectoris; J45.909 Unspecified asthma, uncomplicated; J44.9 Chronic obstructive pulmonary disease, unspecified; K21.9 Gastro-esophageal reflux disease without esophagitis; E78.00 Pure hypercholesterolemia, unspecified; I10 Essential (primary) hypertension; G43.909 Migraine, unspecified, not intractable, without status migrainosus; M19.90 Unspecified osteoarthritis, unspecified site; Z87.891 Personal history of nicotine dependence; Z88.0 Allergy status to penicillin
CPT/HCPCS: 36415; 74176; 80053; 81001; 83690; 84484; 85025; 96374; 96375; 99285; J1885; J2270; J2405

== ENCOUNTER 2019-05-14 07:27 | Emergency (ER) | payer MEDICARE, MEDICAID ==
[~2019-05-14] VITALS: Ht 157.5 cm; Wt 65.9 kg
[~2019-05-14 07:27] MED LIST changes: -ACET-2902 PO; +ACET-66 PO
[2019-05-14] MEDS ORDERED: MEMA10TA11 PO (07:35)
[2019-05-14] MEDS ORDERED: FAMO20 PO (07:35)
[2019-05-14] MEDS ORDERED: ATOR40TA28 PO (07:35)
[2019-05-14] MEDS ORDERED: PANT40TA25 PO (07:35)
[2019-05-14] MEDS ORDERED: SENN-176 PO (07:35)
[2019-05-14] MEDS ORDERED: NYST30CR9 TP (07:37)
[2019-05-14] MEDS ORDERED: DiphenhydrAMINE HCL 25 MG CAPSULE PO ONE (08:45)
[2019-05-14 09:15] VITALS: BP 129/84
== END 2019-05-14 09:23 | disposition home or self-care (01) ==
LOC: EMS 07:28
DX: B35.4 Tinea corporis (principal); B35.6 Tinea cruris; I10 Essential (primary) hypertension; J44.9 Chronic obstructive pulmonary disease, unspecified; K21.9 Gastro-esophageal reflux disease without esophagitis; E78.00 Pure hypercholesterolemia, unspecified; G43.909 Migraine, unspecified, not intractable, without status migrainosus; Z87.891 Personal history of nicotine dependence; Z88.0 Allergy status to penicillin

== ENCOUNTER 2019-11-19 12:08 | Emergency (ER) | payer MEDICARE, MEDICAID ==
[~2019-11-19] VITALS: Ht 160 cm; Wt 63.6 kg
[~2019-11-19 12:08] MED LIST changes: -ACET-66 PO; +ATOR40TA28 PO; -BACL10TA PO; +FAMO20 PO; -GABA-531 PO; +HYDR-1475 PO; -HYDR25TA PO; -IBUP-2070 PO; +MEMA10TA11 PO; +NYST30CR9 TP; -OMEP20 PO; +PANT40TA25 PO; -RANI150T7 PO; +SENN-176 PO
[2019-11-19 14:27] LABS: BASOPHILS % (AUTO) 1.2 % (0.0-2.0); EOSINOPHILS % (AUTO) 6.5 % (1.0-6.0); HEMATOCRIT 38.8 % (36-46); HEMOGLOBIN 12.8 g/dL (12.0-16.0); LYMPHOCYTES # (AUTO) 1.8 K/uL (1.0-4.8); LYMPHOCYTES % (AUTO) 29.1 % (22.0-44.0); MEAN CORPUSCULAR HGB CONC 32.9 G/dL (31.0-37.0); MEAN CORPUSCULAR VOLUME 88 fL (80-100); MONOCYTES % (AUTO) 15.8 % (2.0-9.0); NEUTROPHILS # (AUTO) 2.9 K/uL (1.8-7.7); NEUTROPHILS % (AUTO) 47.4 % (40.0-70.0); PLATELET COUNT (AUTO) 228 K/uL (150-450); RED BLOOD CELL COUNT(AUTO) 4.41 MIL/uL (4.00-5.20); RED CELL DISTRIBUTION WIDTH 13.6 % (11.5-14.5)
[2019-11-19 14:40] LABS: CALCIUM, TOTAL 10.8 mg/dL (8.8-10.5); CREATININE 0.99 mg/dL (0.60-1.30); POTASSIUM 3.9 mmol/L (3.5-5.1)
[2019-11-19 15:06] LABS: ALBUMIN 3.4 g/dL (3.4-5.0); BILIRUBIN,TOTAL 0.2 mg/dL (0.1-1.0); TOTAL PROTEIN, SERUM 8.1 g/dL (6.4-8.2)
[2019-11-19 15:16] VITALS: BP 148/80
== END 2019-11-19 14:45 | disposition left against medical advice (07) ==
LOC: EMS 12:12
DX: R07.9 Chest pain, unspecified (principal); M25.511 Pain in right shoulder; E78.00 Pure hypercholesterolemia, unspecified; J44.9 Chronic obstructive pulmonary disease, unspecified; K21.9 Gastro-esophageal reflux disease without esophagitis; M19.90 Unspecified osteoarthritis, unspecified site; G43.909 Migraine, unspecified, not intractable, without status migrainosus; Z87.891 Personal history of nicotine dependence; Z98.890 Other specified postprocedural states; Z79.899 Other long term (current) drug therapy; Z88.0 Allergy status to penicillin
CPT/HCPCS: 85379; 93005

== ENCOUNTER 2020-04-19 01:34 | Emergency (ER) | payer MEDICAID, MEDICARE ==
[~2020-04-19] VITALS: Ht 165.1 cm; Wt 65.9 kg
[~2020-04-19 01:34] MED LIST changes: +PANT-31 PO; -PANT40TA25 PO; -SENN-176 PO; +SENN-277 PO
[2020-04-19] MEDS ORDERED: KETO5DRO6 OU (02:10)
[2020-04-19] MEDS ORDERED: MELA3TAB82 PO (02:10)
[2020-04-19] MEDS ORDERED: BRIM155OS OU (02:10)
[2020-04-19] MEDS ORDERED: OS500 PO (02:10)
[2020-04-19] MEDS ORDERED: ACETAMINOPHEN 500 MG TABLET PO ONE (02:45)
[2020-04-19] MEDS ORDERED: SODIUM CHLORIDE 0.9% 500 ML IV ONE (02:45)
[2020-04-19] MEDS ORDERED: MORPHINE SULFATE 2 MG/ML SYRINGE IVP ONE ×2 (02:45→04:30)
[2020-04-19 03:29] LABS: BASOPHILS % (AUTO) 1.2 % (0.0-2.0); EOSINOPHILS % (AUTO) 8.7 % (1.0-6.0); HEMATOCRIT 37.4 % (36-46); HEMOGLOBIN 12.4 g/dL (12.0-16.0); LYMPHOCYTES # (AUTO) 1.6 K/uL (1.0-4.8); LYMPHOCYTES % (AUTO) 32.3 % (22.0-44.0); MEAN CORPUSCULAR HEMOGLOBIN 29.6 pg (26.0-34.0); MEAN CORPUSCULAR HGB CONC 33.1 G/dL (31.0-37.0); MEAN CORPUSCULAR VOLUME 90 fL (80-100); MONOCYTES # (AUTO) 0.7 K/uL (0.1-1.0); MONOCYTES % (AUTO) 14.4 % (2.0-9.0); NEUTROPHILS # (AUTO) 2.1 K/uL (1.8-7.7); NEUTROPHILS % (AUTO) 43.4 % (40.0-70.0); PLATELET COUNT (AUTO) 214 K/uL (150-450); RED BLOOD CELL COUNT(AUTO) 4.18 MIL/uL (4.00-5.20); RED CELL DISTRIBUTION WIDTH 13.7 % (11.5-14.5)
[2020-04-19 03:38] LABS: CREATININE 1.1 mg/dL (0.60-1.30); POTASSIUM 3.5 mmol/L (3.5-5.1)
[2020-04-19 03:44] LABS: ALBUMIN 3.7 g/dL (3.4-5.0); BILIRUBIN,TOTAL 0.3 mg/dL (0.1-1.0); TOTAL PROTEIN, SERUM 8.3 g/dL (6.4-8.2)
[2020-04-19 03:56] LABS: APPEARANCE,URINE CLEAR (CLEAR); BILIRUBIN,URINE NEGATIVE (NEGATIVE); GLUCOSE, URINE (UA) NEGATIVE (NEGATIVE); KETONES,URINE NEGATIVE (NEGATIVE); LEUKOCYTE ESTERASE ,URINE SMALL (NEGATIVE); NITRATE,URINE NEGATIVE (NEGATIVE); OCCULT BLOOD,URINE NEGATIVE (NEGATIVE); PH,URINE 5.5 (5.0-8.0); PROTEIN,URINE NEGATIVE (NEGATIVE); UROBILINOGEN,URINE 0.2 mg/dL (<=1.0)
[2020-04-19 04:10] LABS: BACTERIA,URINE Few /HPF (None Seen); RBC,URINE None Seen /HPF (0-2); SQUAMOUS EPITHELIAL CELL,UR Few /LPF (None Seen)
[2020-04-19 05:39] VITALS: BP 149/86
== END 2020-04-19 05:51 | disposition short-term general hospital (02) ==
LOC: EMS 01:38
DX: R10.33 Periumbilical pain (principal); J45.909 Unspecified asthma, uncomplicated; K21.9 Gastro-esophageal reflux disease without esophagitis; E78.00 Pure hypercholesterolemia, unspecified; I10 Essential (primary) hypertension; G43.909 Migraine, unspecified, not intractable, without status migrainosus; Z87.891 Personal history of nicotine dependence; Z88.0 Allergy status to penicillin
CPT/HCPCS: 36415; 71045; 80053; 81001; 83690; 85025; 96374; 96376; 99285; J2270; J7040

== ENCOUNTER 2022-05-10 07:21 | Emergency (ER) | payer MEDICARE ==
[~2022-05-10] VITALS: Ht 154.9 cm; Wt 65.9 kg
[~2022-05-10 07:21] MED LIST changes: +BRIM155OS OU; -HYDR-1475 PO; +HYDR25TA2 PO; +KETO5DRO6 OU; +MELA3TAB89 PO; +MONT-35 PO; -MONT10TA21 PO; +OS500 PO
[2022-05-10] MEDS ORDERED: PredniSONE 20 MG TABLET PO ONE (07:45)
[2022-05-10 07:56] LABS: BASOPHILS % (AUTO) 0.5 % (0.0-2.0); EOSINOPHILS % (AUTO) 14.9 % (1.0-6.0); HEMATOCRIT 35.8 % (36-46); HEMOGLOBIN 11.9 g/dL (12.0-16.0); LYMPHOCYTES # (AUTO) 1.8 K/uL (1.0-4.8); LYMPHOCYTES % (AUTO) 30.8 % (22.0-44.0); MEAN CORPUSCULAR HEMOGLOBIN 28.8 pg (26.0-34.0); MEAN CORPUSCULAR HGB CONC 33.1 G/dL (31.0-37.0); MEAN CORPUSCULAR VOLUME 87 fL (80-100); MONOCYTES # (AUTO) 0.8 K/uL (0.1-1.0); MONOCYTES % (AUTO) 13.4 % (2.0-9.0); NEUTROPHILS # (AUTO) 2.4 K/uL (1.8-7.7); NEUTROPHILS % (AUTO) 40.4 % (40.0-70.0); PLATELET COUNT (AUTO) 192 K/uL (150-450); RED BLOOD CELL COUNT(AUTO) 4.11 MIL/uL (4.00-5.20)
[2022-05-10 08:04] LABS: CALCIUM, TOTAL 9.5 mg/dL (8.8-10.5); CREATININE 1.02 mg/dL (0.60-1.30); POTASSIUM 3.1 mmol/L (3.5-5.1)
[2022-05-10 08:14] LABS: COVID AG,FIA SOURCE NASOPHARYNGEAL
[2022-05-10 08:19] LABS: ALBUMIN 3.5 g/dL (3.4-5.0); BILIRUBIN,TOTAL 0.4 mg/dL (0.1-1.0); TOTAL PROTEIN, SERUM 7.6 g/dL (6.4-8.2)
[2022-05-10 08:41] LABS: INFLUENZA TYPE A NEGATIVE FOR TYPE A (NEGATIVE); INFLUENZA TYPE B NEGATIVE FOR TYPE B (NEGATIVE)
[2022-05-10] MEDS ORDERED: PRED-554 PO (08:52)
[2022-05-10 09:02] VITALS: BP 144/79
== END 2022-05-10 09:39 | disposition home or self-care (01) ==
LOC: EMS 07:23
DX: J44.9 Chronic obstructive pulmonary disease, unspecified (principal); M19.90 Unspecified osteoarthritis, unspecified site; J45.909 Unspecified asthma, uncomplicated; H40.9 Unspecified glaucoma; E78.00 Pure hypercholesterolemia, unspecified; I10 Essential (primary) hypertension; G43.909 Migraine, unspecified, not intractable, without status migrainosus; Z86.79 Personal history of other diseases of the circulatory system; Z87.09 Personal history of other diseases of the respiratory system; Z87.19 Personal history of other diseases of the digestive system; Z86.19 Personal history of other infectious and parasitic diseases; Z98.890 Other specified postprocedural states; Z88.0 Allergy status to penicillin; Z20.822 Contact with and (suspected) exposure to COVID-19
CPT/HCPCS: 99285; 71045; 87426; 80053; 82550; 83880; 84484; 85025; 87804; 36415; 93005; J7512

== ENCOUNTER 2022-08-11 11:34 | Emergency (ER) | payer MEDICARE, MEDICAID ==
[~2022-08-11] VITALS: Ht 157.5 cm; Wt 50.0 kg
[~2022-08-11 11:34] MED LIST changes: +PRED-554 PO
[2022-08-11 12:33] LABS: COVID AG,FIA SOURCE NASOPHARYNGEAL
[2022-08-11 12:48] LABS: BASOPHILS % (AUTO) 0.5 % (0.0-2.0); EOSINOPHILS % (AUTO) 0.9 % (1.0-6.0); HEMATOCRIT 39.5 % (36-46); HEMOGLOBIN 12.9 g/dL (12.0-16.0); LYMPHOCYTES # (AUTO) 0.9 K/uL (1.0-4.8); LYMPHOCYTES % (AUTO) 19.2 % (22.0-44.0); MEAN CORPUSCULAR HEMOGLOBIN 29.7 pg (26.0-34.0); MEAN CORPUSCULAR HGB CONC 32.7 G/dL (31.0-37.0); MEAN CORPUSCULAR VOLUME 91 fL (80-100); MONOCYTES # (AUTO) 0.6 K/uL (0.1-1.0); MONOCYTES % (AUTO) 12.8 % (2.0-9.0); NEUTROPHILS # (AUTO) 3.2 K/uL (1.8-7.7); NEUTROPHILS % (AUTO) 66.6 % (40.0-70.0); PLATELET COUNT (AUTO) 194 K/uL (150-450); RED BLOOD CELL COUNT(AUTO) 4.36 MIL/uL (4.00-5.20); RED CELL DISTRIBUTION WIDTH 13.8 % (11.5-14.5)
[2022-08-11 12:55] LABS: CALCIUM, TOTAL 9.7 mg/dL (8.8-10.5); CREATININE 1.07 mg/dL (0.60-1.30); POTASSIUM 3.2 mmol/L (3.5-5.1)
[2022-08-11 13:07] LABS: ALBUMIN 3.9 g/dL (3.4-5.0); BILIRUBIN,TOTAL 0.5 mg/dL (0.1-1.0)
[2022-08-11 13:17] LABS: INFLUENZA TYPE A NEGATIVE FOR TYPE A (NEGATIVE); INFLUENZA TYPE B NEGATIVE FOR TYPE B (NEGATIVE)
[2022-08-11 16:13] VITALS: BP 126/78
[2022-08-11] MEDS ORDERED: ALBUTEROL SULFATE 2.5 MG/0.5 ML NEB SOLUTION NEB ONE (16:15)
== END 2022-08-11 16:45 | disposition home or self-care (01) ==
LOC: EMS 11:34
DX: F41.9 Anxiety disorder, unspecified (principal); Z20.822 Contact with and (suspected) exposure to COVID-19; E78.00 Pure hypercholesterolemia, unspecified; I10 Essential (primary) hypertension; J44.9 Chronic obstructive pulmonary disease, unspecified; K21.9 Gastro-esophageal reflux disease without esophagitis; M19.90 Unspecified osteoarthritis, unspecified site; R06.02 Shortness of breath; Z86.69 Personal history of other diseases of the nervous system and sense organs; Z86.79 Personal history of other diseases of the circulatory system; Z88.0 Allergy status to penicillin
CPT/HCPCS: 71045; 80053; 83605; 83690; 83880; 84484; 85025; 87804; 93005; 94640; 99285; 36415-L1; 36415-TC; J7613

== ENCOUNTER 2022-09-02 11:42 | Emergency (ER) | payer MEDICARE, MEDICAID ==
[~2022-09-02] VITALS: Ht 160 cm; Wt 47.7 kg
[2022-09-02 12:58] LABS: BASOPHILS % (AUTO) 1.8 % (0.0-2.0); HEMATOCRIT 36.4 % (36-46); HEMOGLOBIN 11.9 g/dL (12.0-16.0); LYMPHOCYTES # (AUTO) 1.1 K/uL (1.0-4.8); LYMPHOCYTES % (AUTO) 26.6 % (22.0-44.0); MEAN CORPUSCULAR HEMOGLOBIN 29.3 pg (26.0-34.0); MEAN CORPUSCULAR HGB CONC 32.6 G/dL (31.0-37.0); MEAN CORPUSCULAR VOLUME 90 fL (80-100); MONOCYTES # (AUTO) 0.5 K/uL (0.1-1.0); MONOCYTES % (AUTO) 11.9 % (2.0-9.0); NEUTROPHILS # (AUTO) 2.3 K/uL (1.8-7.7); NEUTROPHILS % (AUTO) 57.7 % (40.0-70.0); PLATELET COUNT (AUTO) 274 K/uL (150-450); RED BLOOD CELL COUNT(AUTO) 4.05 MIL/uL (4.00-5.20); RED CELL DISTRIBUTION WIDTH 13.6 % (11.5-14.5)
[2022-09-02 13:07] LABS: CALCIUM, TOTAL 9.2 mg/dL (8.8-10.5); CREATININE 0.95 mg/dL (0.60-1.30); POTASSIUM 3.7 mmol/L (3.5-5.1)
[2022-09-02 13:09] LABS: PROTHROMBIN TIME 11.1 SEC (9.4-11.6)
[2022-09-02 13:14] LABS: ALBUMIN 3.3 g/dL (3.4-5.0); BILIRUBIN,TOTAL 0.4 mg/dL (0.1-1.0); TOTAL PROTEIN, SERUM 7.3 g/dL (6.4-8.2)
[2022-09-02 13:15] LABS: LACTIC ACID 0.9 mmol/L (0.4-2.0)
[2022-09-02 14:23] LABS: APPEARANCE,URINE CLEAR (CLEAR); BILIRUBIN,URINE NEGATIVE (NEGATIVE); GLUCOSE, URINE (UA) NEGATIVE (NEGATIVE); KETONES,URINE NEGATIVE (NEGATIVE); LEUKOCYTE ESTERASE ,URINE MODERATE (NEGATIVE); NITRATE,URINE NEGATIVE (NEGATIVE); OCCULT BLOOD,URINE NEGATIVE (NEGATIVE); PH,URINE 8.5 (5.0-8.0); PROTEIN,URINE 30-70 mg/dL (NEGATIVE); SPECIFIC GRAVITIY, URINE 1.028 (1.003-1.030)
[2022-09-02 14:29] LABS: AMPHET/METH SCREEN,URINE NEGATIVE (NEGATIVE); BARBITURATE SCREEN, URINE NEGATIVE (NEGATIVE); BENZODIAZEPINES SCREEN,URINE NEGATIVE (NEGATIVE); CANNABINOID SCREEN,URINE POSITIVE (NEGATIVE); COCAINE SCREEN,URINE NEGATIVE (NEGATIVE); METHADONE SCREEN, URINE NEGATIVE (NEGATIVE); OPIATE SCREEN,URINE NEGATIVE (NEGATIVE)
[2022-09-02 14:45] LABS: BACTERIA,URINE None Seen /HPF (None Seen); RBC,URINE None Seen /HPF (0-2); SQUAMOUS EPITHELIAL CELL,UR Few /LPF (None Seen)
[2022-09-02 14:46] LABS: PHENCYCLIDINE SCREEN,URINE NEGATIVE (NEGATIVE)
[2022-09-02 15:13] LABS: COVID AG,FIA SOURCE NASAL SWAB
[2022-09-02 15:37] LABS: INFLUENZA TYPE A NEGATIVE FOR TYPE A (NEGATIVE); INFLUENZA TYPE B NEGATIVE FOR TYPE B (NEGATIVE)
[2022-09-02 16:32] VITALS: BP 132/75
== END 2022-09-02 16:37 | disposition left against medical advice (07) ==
LOC: EMS 11:51
DX: R55 Syncope and collapse (principal); M19.90 Unspecified osteoarthritis, unspecified site; J40 Bronchitis, not specified as acute or chronic; J44.9 Chronic obstructive pulmonary disease, unspecified; E78.00 Pure hypercholesterolemia, unspecified; I10 Essential (primary) hypertension; G43.909 Migraine, unspecified, not intractable, without status migrainosus; Z87.891 Personal history of nicotine dependence; Z98.890 Other specified postprocedural states; Z20.822 Contact with and (suspected) exposure to COVID-19; Z88.0 Allergy status to penicillin
CPT/HCPCS: 70450; 71045; 80053; 81001; 82550; 83605; 84484; 85025; 85610; 85730; 87040; 87804; 93005; 99285; 36415-L1; 36415-TC

== ENCOUNTER 2023-09-16 13:01 | Emergency (ER) | payer MEDICARE, OTHER ==
[~2023-09-16] VITALS: Ht 160 cm; Wt 63.6 kg
[~2023-09-16 13:01] MED LIST changes: -BRIM155OS OU; +BRIM5DRO23 OU; +KETO-99 OU; -KETO5DRO6 OU
[2023-09-16 13:16] VITALS: BP 160/95; PULSE 80; RESP 18; TEMP 97.6
== END 2023-09-16 14:11 | disposition left against medical advice (07) ==
LOC: EMS 13:37
DX: M25.561 Pain in right knee (principal); M25.551 Pain in right hip; Z53.21 Procedure and treatment not carried out due to patient leaving prior to being seen by health care provider
CPT/HCPCS: 99281; Z7502

== ENCOUNTER 2024-10-28 18:08 | Inpatient (IN) | payer MEDICARE, MEDICAID ==
[~2024-10-28] VITALS: Ht 160 cm; Wt 49.4 kg
[~2024-10-28 18:08] MED LIST changes: -MEMA10TA11 PO; +MEMA10TA24 PO; -SENN-277 PO; +SENN-374 PO
[2024-10-28 18:49] VITALS: O2SAT 98
[2024-10-28 20:43] LABS: COVID AG,FIA SOURCE NASAL SWAB
[2024-10-28 20:52] LABS: ANION GAP 9 mmol/L (8-16); CALCIUM, TOTAL 8.7 mg/dL (8.8-10.5); CARBON DIOXIDE 26 mmol/L (22-29); CHLORIDE 107 mmol/L (98-107); GLOMERULAR FILTR. RATE CALC > 60 mL/min (>60); GLUCOSE,RANDOM 123 mg/dL (70-110); POTASSIUM 3.7 mmol/L (3.5-5.1); SODIUM SERUM 142 mmol/L (136-145); UREA NITROGEN, BLOOD 20 mg/dL (7-18)
[2024-10-28 20:53] LABS: SARS-COV2 (COVID) ANTIGEN,FIA Negative (Negative)
[2024-10-28 20:55] LABS: ALCOHOL, BLOOD (SERUM) < 3 mg/dL (0-10)
[2024-10-28 21:04] LABS: BASOPHILS % (AUTO) 1.3 % (0.0-2.0); EOSINOPHILS % (AUTO) 6.2 % (1.0-6.0); HEMATOCRIT 32.9 % (36-46); HEMOGLOBIN 10.9 g/dL (12.0-16.0); LYMPHOCYTES # (AUTO) 1.6 K/uL (1.0-4.8); LYMPHOCYTES % (AUTO) 28.9 % (22.0-44.0); MEAN CORPUSCULAR HEMOGLOBIN 30.2 pg (26.0-34.0); MEAN CORPUSCULAR VOLUME 92 fL (80-100); MONOCYTES # (AUTO) 0.7 K/uL (0.1-1.0); MONOCYTES % (AUTO) 11.9 % (2.0-9.0); NEUTROPHILS # (AUTO) 2.9 K/uL (1.8-7.7); NEUTROPHILS % (AUTO) 51.7 % (40.0-70.0); PLATELET COUNT (AUTO) 204 K/uL (150-450); RED CELL DISTRIBUTION WIDTH 14.8 % (11.5-14.5); WHITE BLOOD COUNT (AUTO) 5.6 K/uL (4.5-11.0)
[2024-10-28] MEDS ORDERED: HALOPERIDOL 5 MG TABLET PO PRN (22:15)
[2024-10-28] MEDS ORDERED: ZOLPIDEM TARTRATE 10 MG TABLET PO PRN (22:15)
[2024-10-29 03:01] VITALS: BP 157/88; PULSE 74; RESP 18; TEMP 97.5; O2SAT 98
[2024-10-29 08:23] VITALS: BP 135/91; PULSE 81; RESP 18; TEMP 97.6; O2SAT 96
[2024-10-29] MEDS: SERTRALINE HCL 50 MG TABLET PO SCH (08:43)
[2024-10-29] MEDS: DIVALPROEX SODIUM 250 MG DR TABLET PO SCH (08:43)
[2024-10-29] MEDS: LORazepam 2 MG TABLET PO PRN (11:00)
[2024-10-29] MEDS ORDERED: LORazepam 2 MG/ML VIAL ONE (14:31)
[2024-10-29] MEDS ORDERED: DiphenhydrAMINE HCL 50 MG/ML VIAL ONE (14:32)
[2024-10-29] MEDS ORDERED: HALOPERIDOL LACTATE 5 MG/ML VIAL ONE (14:32)
[2024-10-29] MEDS: LORazepam 2 MG/ML VIAL IM ONE (14:39)
[2024-10-29] MEDS: DiphenhydrAMINE HCL 50 MG/ML VIAL IM ONE (14:40)
[2024-10-29] MEDS: HALOPERIDOL LACTATE 5 MG/ML VIAL IM ONE (14:45)
[2024-10-29 16:29] VITALS: BP 134/88; PULSE 81; RESP 18; TEMP 98; O2SAT 98
[2024-10-29] MEDS: QUEtiapine FUMARATE 25 MG TABLET PO SCH (17:00)
[2024-10-29 21:02] VITALS: BP 106/60; PULSE 72; RESP 16; TEMP 98.2; O2SAT 94
[2024-10-30] MEDS ORDERED: GuaiFENesin/D-METHORPHAN [SUGAR-FREE] 200-20MG/10 ML SYRUP UDCUP PO PRN (09:45)
[2024-10-30] MEDS ORDERED: NICOTINE 14 MG/24 HOUR PATCH TD PRN (09:45)
[2024-10-30] MEDS ORDERED: PETROLATUM,WHITE 28 GM JELLY TP PRN (09:45)
[2024-10-30] MEDS ORDERED: IBUPROFEN 400 MG TABLET PO PRN (09:45)
[2024-10-30] MEDS ORDERED: DOCUSATE SODIUM 100 MG CAPSULE PO PRN (09:45)
[2024-10-30] MEDS ORDERED: LOPERAMIDE HCL 2 MG CAPSULE PO PRN (09:45)
[2024-10-30] MEDS ORDERED: ACETAMINOPHEN 325 MG TABLET PO PRN (09:45)
[2024-10-30] MEDS ORDERED: MAGNESIUM HYDROXIDE SUSPENSION 30 ML UDCUP PO PRN (09:45)
[2024-10-30 10:00] VITALS: BP 135/83; PULSE 79; RESP 16; TEMP 97.9; O2SAT 96
[2024-10-30] MEDS: CALCIUM [CALCIUM CARB 1250MG] 500 MG TABLET PO SCH (16:50)
[2024-10-30 18:37] VITALS: BP 135/83; PULSE 79; RESP 16; TEMP 97.9; O2SAT 96
[2024-10-30 20:16] VITALS: BP 152/84; PULSE 100; RESP 18; TEMP 98.1; O2SAT 97
[2024-10-30] MEDS: LATANOPROST 0.005% 2.5 ML OPHTHALMIC SOLUTION OU SCH (20:30)
[2024-10-30] MEDS: MELATONIN 3 MG TABLET PO SCH (20:30)
[2024-10-31 08:28] VITALS: BP 109/72; PULSE 89; RESP 16; TEMP 97.6; O2SAT 99
[2024-10-31] MEDS: HYDROCHLOROTHIAZIDE 25 MG TABLET PO SCH (08:50)
[2024-10-31] MEDS: MONTELUKAST SODIUM 10 MG TABLET PO SCH (08:51)
[2024-10-31] MEDS: ATORVASTATIN CALCIUM 40 MG TABLET PO SCH (08:52)
[2024-10-31 09:20] LABS: HEMOGLOBIN A1C 5.8 % (3.8-5.6)
[2024-10-31 09:39] LABS: CHOL/HDL RATIO 2.6 (3.9-5.7); THYROID STIMULATING HORMONE 1.04 uIU/mL (0.36-3.74)
[2024-10-31 20:47] VITALS: BP 167/80; PULSE 90; RESP 19; TEMP 97.4; O2SAT 99
[2024-11-01] MEDS: MAG HYDROX/ALUMINUM HYD/SIMETH ES 30 ML SUSPENSION UDCUP PO PRN (05:46)
[2024-11-01 08:19] VITALS: BP 162/90; PULSE 99; RESP 18; TEMP 97.9; O2SAT 98
[2024-11-01 20:34] VITALS: BP 133/80; PULSE 90; RESP 16; TEMP 97.5; O2SAT 96
[2024-11-02] VITALS (10 sets, daily range): BP systolic 138–182; BP diastolic 85–114; PULSE 87–124; RESP 16–20; TEMP 94.2–97.9; O2SAT 96–98
[2024-11-02 09:09] LABS: ANION GAP 9 mmol/L (8-16); CARBON DIOXIDE 33 mmol/L (22-29); CHLORIDE 100 mmol/L (98-107); CREATININE 0.86 mg/dL (0.60-1.30); GLOMERULAR FILTR. RATE CALC > 60 mL/min (>60); GLUCOSE,RANDOM 102 mg/dL (70-110); POTASSIUM 3.8 mmol/L (3.5-5.1); SODIUM SERUM 142 mmol/L (136-145); UREA NITROGEN, BLOOD 18 mg/dL (7-18)
[2024-11-02 09:20] LABS: APPEARANCE,URINE CLEAR (CLEAR); BILIRUBIN,URINE NEGATIVE (NEGATIVE); COLOR,URINE YELLOW (YELLOW); GLUCOSE, URINE (UA) NEGATIVE (NEGATIVE); KETONES,URINE NEGATIVE (NEGATIVE); LEUKOCYTE ESTERASE ,URINE SMALL (NEGATIVE); NITRATE,URINE NEGATIVE (NEGATIVE); OCCULT BLOOD,URINE NEGATIVE (NEGATIVE); PH,URINE 6.5 (5.0-8.0); PH,URINE DRUG SCREEN 6.5 (5.0-8.0); PROTEIN,URINE TRACE mg/dL (NEGATIVE); SPECIFIC GRAVITIY, URINE 1.024 (1.003-1.030); UROBILINOGEN,URINE <=1.0 mg/dL (<=1.0)
[2024-11-02 09:27] LABS: ALCOHOL, URINE DRUG SCREEN NEGATIVE (NEGATIVE); AMPHET/METH SCREEN,URINE NEGATIVE (NEGATIVE); BARBITURATE SCREEN, URINE NEGATIVE (NEGATIVE); BENZODIAZEPINES SCREEN,URINE NEGATIVE (NEGATIVE); CANNABINOID SCREEN,URINE NEGATIVE (NEGATIVE); COCAINE SCREEN,URINE NEGATIVE (NEGATIVE); METHADONE SCREEN, URINE NEGATIVE (NEGATIVE); OPIATE SCREEN,URINE NEGATIVE (NEGATIVE); PHENCYCLIDINE SCREEN,URINE NEGATIVE (NEGATIVE)
[2024-11-02 10:01] LABS: C.DIFF GDH ANTIGEN, Stool Negative (Negative); C.DIFF TOXINS A&B, Stool Negative (Negative)
[2024-11-02 10:18] LABS: RBC,URINE 0-2 /HPF (0-2)
[2024-11-02 10:19] LABS: BACTERIA,URINE Few /HPF (None Seen); CALCIUM OXALATE CRYSTALS,UR Moderate /LPF (None Seen); SQUAMOUS EPITHELIAL CELL,UR Moderate /LPF (None Seen)
[2024-11-02] MEDS: ONDANSETRON 4 MG TABLET PO PRN (20:58)
[2024-11-02] MEDS: PANTOPRAZOLE SODIUM 40 MG DR TABLET PO SCH (21:15)
[2024-11-02] MEDS: CloNIDine HCL 0.1 MG TABLET PO PRN (23:24)
[2024-11-03 06:15] VITALS: BP 141/72; PULSE 88; RESP 16; TEMP 97.8; O2SAT 98
[2024-11-03 08:42] VITALS: BP 152/88; RESP 16; O2SAT 98
[2024-11-03] MEDS: MetroNIDAZOLE 500 MG TABLET PO SCH (08:59)
[2024-11-03 12:17] VITALS: BP 139/67; PULSE 76; RESP 17; TEMP 97.3; O2SAT 98
[2024-11-03] MEDS: ALBUTEROL SULFATE HFA 90 MCG/PUFF 8 GM INHALER IH PRN (14:18)
[2024-11-03 20:25] VITALS: BP 132/68; PULSE 100; RESP 18; TEMP 96.5; O2SAT 98
[2024-11-03 20:35] VITALS: BP 132/68; PULSE 100; RESP 18; TEMP 96.5; O2SAT 98
[2024-11-04 08:39] VITALS: BP 117/77; PULSE 68; RESP 18; TEMP 97.3; O2SAT 99
[2024-11-04] MEDS: TraMADol HCL 50 MG TABLET PO ONE (14:33)
[2024-11-04] MEDS ORDERED: METR500 PO (14:43)
[2024-11-04] MEDS ORDERED: QUET25TA PO ×2 (14:44)
[2024-11-04] MEDS ORDERED: DIVA-111 PO (14:45)
[2024-11-04] MEDS ORDERED: SERT-158 PO (14:47)
== END 2024-11-04 17:30 | DRG 885 ==
LOC: EMS 18:08 → B2X 10-29 00:30 → UNDOADMIN 10-29 00:30 → B2S 10-31 09:07
PROVIDERS: ADMIT Psychiatry & Neurology Psychiatry; ATTEND Psychiatry & Neurology Psychiatry
PROC: GZHZZZZ Group Psychotherapy (ICD-10-PCS; principal; 2024-10-29)
DX: F31.5 Bipolar disorder, current episode depressed, severe, with psychotic features (principal); F02.83 Dementia in other diseases classified elsewhere, unspecified severity, with mood disturbance; D63.8 Anemia in other chronic diseases classified elsewhere; E78.00 Pure hypercholesterolemia, unspecified; Z20.822 Contact with and (suspected) exposure to COVID-19; G30.9 Alzheimer's disease, unspecified; G43.909 Migraine, unspecified, not intractable, without status migrainosus; I10 Essential (primary) hypertension; J44.89 Other specified chronic obstructive pulmonary disease; K21.9 Gastro-esophageal reflux disease without esophagitis; M81.0 Age-related osteoporosis without current pathological fracture; Z79.899 Other long term (current) drug therapy; Z87.891 Personal history of nicotine dependence; Z88.0 Allergy status to penicillin; R56.9 Unspecified convulsions
CPT/HCPCS: 80048; 80061; 80307; 81001; 83036; 84443; 85025; 87081; 87324; 87449; 99285; G0480; J1200; J1630; J2060; J3535; Q0162

== ENCOUNTER 2024-11-02 12:48 | Emergency (ER) | payer MEDICARE, OTHER ==
[~2024-11-02] VITALS: Ht 160 cm; Wt 50.0 kg
[2024-11-02 12:56] VITALS: BP 154/98; PULSE 72; RESP 18; TEMP 98.3; O2SAT 98
[2024-11-02] MEDS: ONDANSETRON HCL 4 MG/2 ML VIAL IVP ONE (15:19)
[2024-11-02 15:28] LABS: BASOPHILS % (AUTO) 0.5 % (0.0-2.0); EOSINOPHILS % (AUTO) 3.5 % (1.0-6.0); HEMATOCRIT 44.4 % (36-46); HEMOGLOBIN 14.4 g/dL (12.0-16.0); LYMPHOCYTES # (AUTO) 0.7 K/uL (1.0-4.8); LYMPHOCYTES % (AUTO) 12.5 % (22.0-44.0); MEAN CORPUSCULAR HEMOGLOBIN 29.7 pg (26.0-34.0); MEAN CORPUSCULAR HGB CONC 32.5 G/dL (31.0-37.0); MEAN CORPUSCULAR VOLUME 91 fL (80-100); MONOCYTES # (AUTO) 0.4 K/uL (0.1-1.0); MONOCYTES % (AUTO) 6.2 % (2.0-9.0); NEUTROPHILS # (AUTO) 4.6 K/uL (1.8-7.7); NEUTROPHILS % (AUTO) 77.3 % (40.0-70.0); PLATELET COUNT (AUTO) 249 K/uL (150-450); RED BLOOD CELL COUNT(AUTO) 4.87 MIL/uL (4.00-5.20); WHITE BLOOD COUNT (AUTO) 5.9 K/uL (4.5-11.0)
[2024-11-02 15:42] LABS: ANION GAP 10 mmol/L (8-16); CALCIUM, TOTAL 10.5 mg/dL (8.8-10.5); CARBON DIOXIDE 37 mmol/L (22-29); CHLORIDE 95 mmol/L (98-107); GLOMERULAR FILTR. RATE CALC 54 mL/min (>60); GLUCOSE,RANDOM 119 mg/dL (70-110); POTASSIUM 3.4 mmol/L (3.5-5.1); SODIUM SERUM 142 mmol/L (136-145); UREA NITROGEN, BLOOD 21 mg/dL (7-18)
[2024-11-02 15:51] LABS: ALANINE AMINOTRANSFERASE 25 U/L (12-78); ALKALINE PHOSPHATASE 95 U/L (46-116); ASPARTATE AMINOTRANSFERASE 27 U/L (15-37); BILIRUBIN,TOTAL 0.5 mg/dL (0.1-1.0); LIPASE 60 U/L (16-77); TOTAL PROTEIN, SERUM 9.3 g/dL (6.4-8.2); TROPONIN I-HIGH SENSITIVITY 14 ng/L (<51)
[2024-11-02] MEDS: POTASSIUM CHLORIDE 20 MEQ ER TABLET PO ONE (17:20)
== END 2024-11-02 18:29 ==
LOC: EMS 12:48
DX: E87.6 Hypokalemia (principal); R11.2 Nausea with vomiting, unspecified; R19.7 Diarrhea, unspecified; R10.9 Unspecified abdominal pain; I10 Essential (primary) hypertension; E78.00 Pure hypercholesterolemia, unspecified; K21.9 Gastro-esophageal reflux disease without esophagitis; Z88.0 Allergy status to penicillin; Z79.52 Long term (current) use of systemic steroids; Z79.899 Other long term (current) drug therapy
CPT/HCPCS: 99284; 96374; 80048; 80076; 83690; 84484; 85025; 36415; 93005; J2405

== ENCOUNTER 2024-11-11 18:36 | Inpatient (IN) | payer MEDICARE, MEDICAID ==
[~2024-11-11] VITALS: Ht 160 cm; Wt 52.7 kg
[~2024-11-11 18:36] MED LIST changes: -BRIM5DRO23 OU; +DIVA-111 PO; -FAMO20 PO; -KETO-99 OU; -MEMA10TA24 PO; +METR500 PO; -NYST30CR9 TP; -PRED-554 PO; +QUET25TA PO; -SENN-374 PO; +SERT-158 PO
[2024-11-11] MEDS ORDERED: HALOPERIDOL 5 MG TABLET PO PRN (23:45)
[2024-11-11] MEDS ORDERED: ZOLPIDEM TARTRATE 10 MG TABLET PO PRN (23:45)
[2024-11-11 23:48] LABS: HEMATOCRIT 34.1 % (36-46); HEMOGLOBIN 10.9 g/dL (12.0-16.0); MEAN CORPUSCULAR HEMOGLOBIN 29.4 pg (26.0-34.0); MEAN CORPUSCULAR HGB CONC 31.9 G/dL (31.0-37.0); MEAN CORPUSCULAR VOLUME 92 fL (80-100); PLATELET COUNT (AUTO) 213 K/uL (150-450); RED CELL DISTRIBUTION WIDTH 14.5 % (11.5-14.5); WHITE BLOOD COUNT (AUTO) 6.3 K/uL (4.5-11.0)
[2024-11-11 23:49] LABS: ANION GAP 1 mmol/L (8-16); CALCIUM, TOTAL 8.9 mg/dL (8.8-10.5); CARBON DIOXIDE 34 mmol/L (22-29); CHLORIDE 107 mmol/L (98-107); CREATININE 0.95 mg/dL (0.60-1.30); GLOMERULAR FILTR. RATE CALC 57 mL/min (>60); GLUCOSE,RANDOM 94 mg/dL (70-110); POTASSIUM 4.1 mmol/L (3.5-5.1); SODIUM SERUM 142 mmol/L (136-145); UREA NITROGEN, BLOOD 11 mg/dL (7-18)
[2024-11-12] LABS: APPEARANCE,URINE CLEAR (CLEAR); BILIRUBIN,URINE NEGATIVE (NEGATIVE); COLOR,URINE LIGHT YELLOW (YELLOW); GLUCOSE, URINE (UA) NEGATIVE (NEGATIVE); KETONES,URINE NEGATIVE (NEGATIVE); LEUKOCYTE ESTERASE ,URINE NEGATIVE (NEGATIVE); NITRATE,URINE NEGATIVE (NEGATIVE); OCCULT BLOOD,URINE NEGATIVE (NEGATIVE); PH,URINE 7.5 (5.0-8.0); PH,URINE DRUG SCREEN 7.5 (5.0-8.0); PROTEIN,URINE NEGATIVE (NEGATIVE); SPECIFIC GRAVITIY, URINE 1.014 (1.003-1.030); UROBILINOGEN,URINE <=1.0 mg/dL (<=1.0)
[2024-11-12 00:08] LABS: ALCOHOL, URINE DRUG SCREEN NEGATIVE (NEGATIVE); AMPHET/METH SCREEN,URINE NEGATIVE (NEGATIVE); BARBITURATE SCREEN, URINE NEGATIVE (NEGATIVE); BENZODIAZEPINES SCREEN,URINE NEGATIVE (NEGATIVE); CANNABINOID SCREEN,URINE NEGATIVE (NEGATIVE); COCAINE SCREEN,URINE NEGATIVE (NEGATIVE); METHADONE SCREEN, URINE NEGATIVE (NEGATIVE); OPIATE SCREEN,URINE NEGATIVE (NEGATIVE); PHENCYCLIDINE SCREEN,URINE NEGATIVE (NEGATIVE)
[2024-11-12 00:11] LABS: ALCOHOL, BLOOD (SERUM) < 3 mg/dL (0-10)
[2024-11-12 01:04] LABS: BAND NEUTROPHILS % (MANUAL) 1 % (0-5); EOSINOPHILS % (MANUAL) 15 % (1-6); LYMPHOCYTES % (MANUAL) 25 % (22-44); METAMYELOCYTES % 1 % (0-0); MONOCYTES % (MANUAL) 7 % (2-9); PLATELET MORPHOLOGY COMMENT GIANT PLTS PRESENT; RBC MORPHOLOGY COMMENT NORMAL RBC MORPH; SEGMENTED NEUTROPHILS % 51 % (40-70); TOTAL CELLS COUNTED 100
[2024-11-12 01:23] LABS: COVID AG,FIA SOURCE NASAL SWAB
[2024-11-12 01:48] LABS: SARS-COV2 (COVID) ANTIGEN,FIA Negative (Negative)
[2024-11-12 08:40] VITALS: O2SAT 100
[2024-11-12 09:40] VITALS: BP 160/70; PULSE 73; RESP 16; TEMP 97.4; O2SAT 97
[2024-11-12] MEDS ORDERED: CloNIDine HCL 0.1 MG TABLET PO PRN (11:30)
[2024-11-12] MEDS ORDERED: GuaiFENesin/D-METHORPHAN [SUGAR-FREE] 200-20MG/10 ML SYRUP UDCUP PO PRN (11:30)
[2024-11-12] MEDS ORDERED: LOPERAMIDE HCL 2 MG CAPSULE PO PRN (11:30)
[2024-11-12] MEDS ORDERED: MAGNESIUM HYDROXIDE SUSPENSION 30 ML UDCUP PO PRN (11:30)
[2024-11-12] MEDS ORDERED: DOCUSATE SODIUM 100 MG CAPSULE PO PRN (11:30)
[2024-11-12] MEDS ORDERED: IBUPROFEN 400 MG TABLET PO PRN (11:30)
[2024-11-12] MEDS ORDERED: ALBUTEROL SULFATE HFA 90 MCG/PUFF 8 GM INHALER IH PRN (11:30)
[2024-11-12] MEDS ORDERED: NICOTINE 14 MG/24 HOUR PATCH TD PRN (11:30)
[2024-11-12] MEDS ORDERED: PETROLATUM,WHITE 28 GM JELLY TP PRN (11:30)
[2024-11-12] MEDS ORDERED: MAG HYDROX/ALUMINUM HYD/SIMETH ES 30 ML SUSPENSION UDCUP PO PRN (11:30)
[2024-11-12] MEDS ORDERED: ONDANSETRON 4 MG TABLET PO PRN (11:30)
[2024-11-12] MEDS: LORazepam 2 MG TABLET PO PRN (13:39)
[2024-11-12] MEDS: CALCIUM [CALCIUM CARB 1250MG] 500 MG TABLET PO SCH (16:48)
[2024-11-12] MEDS: ACETAMINOPHEN 325 MG TABLET PO PRN (17:50)
[2024-11-12 20:13] VITALS: BP 138/79; PULSE 71; RESP 17; TEMP 97.9; O2SAT 95
[2024-11-12] MEDS: MELATONIN 3 MG TABLET PO SCH (20:26)
[2024-11-13] MEDS: DIVALPROEX SODIUM 250 MG DR TABLET PO SCH (08:09)
[2024-11-13] MEDS: QUEtiapine FUMARATE 25 MG TABLET PO SCH (08:09)
[2024-11-13] MEDS: HYDROCHLOROTHIAZIDE 25 MG TABLET PO SCH (08:09)
[2024-11-13] MEDS: MONTELUKAST SODIUM 10 MG TABLET PO SCH (08:09)
[2024-11-13] MEDS: SERTRALINE HCL 50 MG TABLET PO SCH (08:09)
[2024-11-13] MEDS: ATORVASTATIN CALCIUM 40 MG TABLET PO SCH (08:09)
[2024-11-13 08:29] VITALS: BP 146/89; PULSE 90; RESP 16; TEMP 97.6; O2SAT 97
[2024-11-13 08:40] LABS: HEMATOCRIT 35.1 % (36-46); HEMOGLOBIN 11.3 g/dL (12.0-16.0); MEAN CORPUSCULAR HEMOGLOBIN 29.5 pg (26.0-34.0); MEAN CORPUSCULAR HGB CONC 32.1 G/dL (31.0-37.0); MEAN CORPUSCULAR VOLUME 92 fL (80-100); PLATELET COUNT (AUTO) 179 K/uL (150-450); RED BLOOD CELL COUNT(AUTO) 3.82 MIL/uL (4.00-5.20); RED CELL DISTRIBUTION WIDTH 14.7 % (11.5-14.5); WHITE BLOOD COUNT (AUTO) 6.6 K/uL (4.5-11.0)
[2024-11-13] MEDS ORDERED: QUEtiapine FUMARATE 25 MG TABLET PO SCH (09:00)
[2024-11-13 09:05] LABS: ALANINE AMINOTRANSFERASE 20 U/L (12-78); ALBUMIN 3.1 g/dL (3.4-5.0); ALKALINE PHOSPHATASE 79 U/L (46-116); ANION GAP 6 mmol/L (8-16); ASPARTATE AMINOTRANSFERASE 22 U/L (15-37); BILIRUBIN,TOTAL 0.2 mg/dL (0.1-1.0); CARBON DIOXIDE 31 mmol/L (22-29); CHLORIDE 104 mmol/L (98-107); CHOL/HDL RATIO 3.3 (3.9-5.7); CHOLESTEROL 129 mg/dL (131-200); GLOMERULAR FILTR. RATE CALC > 60 mL/min (>60); GLUCOSE,RANDOM 88 mg/dL (70-110); HDL CHOLESTEROL 39 mg/dL (40-60); LDL CHOL (CALC.) 69 mg/dL (0-130); SODIUM SERUM 141 mmol/L (136-145); THYROID STIMULATING HORMONE 5.89 uIU/mL (0.36-3.74); TOTAL PROTEIN, SERUM 7.4 g/dL (6.4-8.2); TRIGLYCERIDES 103 mg/dL (15-150); UREA NITROGEN, BLOOD 10 mg/dL (7-18)
[2024-11-13 09:26] LABS: BAND NEUTROPHILS % (MANUAL) 0 % (0-5)
[2024-11-13 09:30] LABS: EOSINOPHILS % (MANUAL) 13 % (1-6); LYMPHOCYTES % (MANUAL) 19 % (22-44); MONOCYTES % (MANUAL) 12 % (2-9); RBC MORPHOLOGY COMMENT NORMAL RBC MORPH; SEGMENTED NEUTROPHILS % 56 % (40-70); TOTAL CELLS COUNTED 100
[2024-11-13 09:56] LABS: APPEARANCE,URINE CLEAR (CLEAR); BILIRUBIN,URINE NEGATIVE (NEGATIVE); COLOR,URINE LIGHT YELLOW (YELLOW); GLUCOSE, URINE (UA) NEGATIVE (NEGATIVE); KETONES,URINE NEGATIVE (NEGATIVE); LEUKOCYTE ESTERASE ,URINE NEGATIVE (NEGATIVE); NITRATE,URINE NEGATIVE (NEGATIVE); OCCULT BLOOD,URINE NEGATIVE (NEGATIVE); PROTEIN,URINE NEGATIVE (NEGATIVE); SPECIFIC GRAVITIY, URINE 1.014 (1.003-1.030); UROBILINOGEN,URINE <=1.0 mg/dL (<=1.0)
[2024-11-13 10:03] LABS: ALCOHOL, URINE DRUG SCREEN NEGATIVE (NEGATIVE); AMPHET/METH SCREEN,URINE NEGATIVE (NEGATIVE); BARBITURATE SCREEN, URINE NEGATIVE (NEGATIVE); BENZODIAZEPINES SCREEN,URINE NEGATIVE (NEGATIVE); CANNABINOID SCREEN,URINE NEGATIVE (NEGATIVE); COCAINE SCREEN,URINE NEGATIVE (NEGATIVE); METHADONE SCREEN, URINE NEGATIVE (NEGATIVE); OPIATE SCREEN,URINE NEGATIVE (NEGATIVE); PHENCYCLIDINE SCREEN,URINE NEGATIVE (NEGATIVE)
[2024-11-13 20:14] VITALS: BP 145/88; PULSE 96; RESP 19; TEMP 97.9; O2SAT 98
[2024-11-14 07:06] LABS: HEPATITIS C AB (EIA) Non Reactive (Non Reactive)
[2024-11-14 08:34] VITALS: BP 121/74; PULSE 90; RESP 18; TEMP 97.6; O2SAT 95
[2024-11-14 09:50] VITALS: BP 119/64; PULSE 100; RESP 18; TEMP 97.3; TEMP 97.5; O2SAT 98
[2024-11-14 10:09] VITALS: BP 123/65; PULSE 100; RESP 20; TEMP 97.5; O2SAT 98
[2024-11-14 10:11] LABS: GLUCOMETER DEV NAME(LOC) BV2X.3; GLUCOSE,POINT OF CARE 106 MG/DL (70-110)
[2024-11-14 20:00] VITALS: BP 115/63; PULSE 80; RESP 18; TEMP 97.9; O2SAT 96
[2024-11-14 20:30] VITALS: BP 115/63; PULSE 80; RESP 18; TEMP 97.9; O2SAT 96
[2024-11-14] MEDS: QUEtiapine FUMARATE 25 MG TABLET PO SCH (20:31)
[2024-11-15 09:07] VITALS: BP 134/75; PULSE 92; RESP 16; TEMP 98.6; O2SAT 97
[2024-11-15 18:30] VITALS: BP 134/75; PULSE 92; RESP 18; TEMP 97.3; O2SAT 97
[2024-11-15 20:42] VITALS: BP 119/64; PULSE 83; RESP 16; TEMP 97.8; O2SAT 95
[2024-11-16 08:27] VITALS: BP 135/66; PULSE 91; RESP 16; TEMP 97.6; O2SAT 96
[2024-11-16 23:02] VITALS: RESP 16
[2024-11-16 23:15] VITALS: BP 135/66; PULSE 91; RESP 18; TEMP 97.6; O2SAT 96
[2024-11-17 08:13] VITALS: BP 132/71; PULSE 82; RESP 16; TEMP 97.7; O2SAT 98
[2024-11-17 20:15] VITALS: BP 131/75; PULSE 85; RESP 18; TEMP 97.8
[2024-11-17 22:54] VITALS: BP 131/75; PULSE 85; RESP 18; TEMP 97.8; O2SAT 85
[2024-11-18 13:16] VITALS: BP 108/63; PULSE 85; RESP 18; TEMP 97.8; O2SAT 98
[2024-11-18 20:15] VITALS: BP 132/82; PULSE 91; RESP 18; TEMP 97.3; O2SAT 95
[2024-11-19 08:26] VITALS: BP 149/81; PULSE 90; RESP 18; TEMP 97.5; O2SAT 98
[2024-11-19 20:21] VITALS: BP 136/76; PULSE 93; RESP 18; TEMP 97.6; O2SAT 96
[2024-11-20 08:16] VITALS: BP 114/70; PULSE 80; RESP 18; TEMP 98.1; O2SAT 96
[2024-11-20 20:08] VITALS: BP 107/65; PULSE 78; RESP 18; TEMP 97.3; O2SAT 96
[2024-11-21 08:19] VITALS: BP 122/74; PULSE 75; RESP 16; TEMP 97.5; O2SAT 95
[2024-11-21 20:48] VITALS: BP 149/89; PULSE 86; RESP 18; TEMP 98.3; O2SAT 95
[2024-11-22 08:55] VITALS: BP 133/81; PULSE 96; RESP 18; TEMP 98.2; O2SAT 95
[2024-11-22 20:00] VITALS: BP 126/78; PULSE 80; RESP 18; TEMP 97.9; O2SAT 96
[2024-11-23 08:00] VITALS: BP 117/79; PULSE 94; RESP 17; TEMP 97.9; O2SAT 96
[2024-11-23 20:15] VITALS: BP 99/55; PULSE 76; RESP 18; TEMP 98.5; O2SAT 96
[2024-11-24 08:29] VITALS: BP 112/63; PULSE 79; RESP 18; TEMP 97.7; O2SAT 96
[2024-11-24 21:40] VITALS: BP 117/60; PULSE 81; RESP 17; TEMP 97.9; O2SAT 98
[2024-11-25 09:10] VITALS: BP 103/61; PULSE 63; RESP 18; TEMP 98.1; O2SAT 97
[2024-11-25 20:27] VITALS: BP 132/77; PULSE 76; RESP 17; TEMP 97.8; O2SAT 97
[2024-11-26 08:38] VITALS: BP 126/80; PULSE 80; RESP 17; TEMP 97.5; O2SAT 97
[2024-11-26 20:16] VITALS: BP 131/70; PULSE 80; RESP 18; TEMP 97.3; O2SAT 97
[2024-11-27 08:29] VITALS: BP 120/70; PULSE 78; RESP 17; TEMP 98.2; O2SAT 97
[2024-11-27 21:02] VITALS: BP 143/80; PULSE 96; RESP 17; TEMP 98; O2SAT 98
[2024-11-28 08:16] VITALS: BP 97/66; PULSE 77; RESP 18; TEMP 97.4; O2SAT 98
[2024-11-28 20:10] VITALS: BP 140/74; PULSE 85; RESP 19; TEMP 98.2; O2SAT 100
[2024-11-29 08:21] VITALS: BP 127/75; PULSE 84; RESP 17; TEMP 97.6; O2SAT 95
[2024-11-29 20:17] VITALS: BP 122/73; PULSE 91; RESP 16; TEMP 98.2; O2SAT 96
[2024-11-30 08:14] VITALS: BP 130/78; PULSE 81; RESP 16; TEMP 98.3; O2SAT 96
[2024-11-30 20:00] VITALS: BP 148/77; PULSE 82; RESP 15; TEMP 98.2; O2SAT 95
[2024-12-01 08:48] VITALS: BP 122/67; PULSE 85; RESP 16; TEMP 97.9; O2SAT 98
[2024-12-01 20:00] VITALS: BP 130/65; PULSE 86; RESP 18; TEMP 98.2; O2SAT 97
[2024-12-02 08:30] VITALS: BP 114/67; PULSE 91; RESP 17; TEMP 98; O2SAT 98
[2024-12-02 20:15] VITALS: BP 119/62; PULSE 78; RESP 16; TEMP 98.2; O2SAT 95
[2024-12-03 08:49] VITALS: BP 103/67; PULSE 87; RESP 18; TEMP 98.1; O2SAT 98
[2024-12-03 20:18] VITALS: BP 133/74; PULSE 96; RESP 18; TEMP 97.9; O2SAT 95
[2024-12-04 08:19] VITALS: BP 145/68; PULSE 76; RESP 17; TEMP 97.8; O2SAT 97
[2024-12-04 20:42] VITALS: BP 140/75; PULSE 76; RESP 18; TEMP 98.3; O2SAT 97
[2024-12-05 08:29] VITALS: BP 139/76; PULSE 75; RESP 17; TEMP 97.5; O2SAT 99
[2024-12-05 20:26] VITALS: BP 131/79; PULSE 92; RESP 18; TEMP 98.1; O2SAT 98
[2024-12-06 08:13] VITALS: BP 130/82; PULSE 102; RESP 17; TEMP 97.9; O2SAT 97
[2024-12-06] MEDS ORDERED: DIVA-111 PO (11:54)
[2024-12-06] MEDS ORDERED: QUET25TA PO (11:57)
== END 2024-12-06 14:43 | DRG 885 ==
LOC: EMS 18:36 → B2S 11-12 04:31 → B2X 11-12 20:49
PROVIDERS: ADMIT Psychiatry & Neurology Psychiatry; ATTEND Psychiatry & Neurology Psychiatry
PROC: GZHZZZZ Group Psychotherapy (ICD-10-PCS; principal; 2024-11-13)
PROC: GZ52ZZZ Individual Psychotherapy, Cognitive (ICD-10-PCS; 2024-11-13)
DX: F31.5 Bipolar disorder, current episode depressed, severe, with psychotic features (principal); F02.83 Dementia in other diseases classified elsewhere, unspecified severity, with mood disturbance; G30.9 Alzheimer's disease, unspecified; I10 Essential (primary) hypertension; E78.5 Hyperlipidemia, unspecified; Z20.822 Contact with and (suspected) exposure to COVID-19; K21.9 Gastro-esophageal reflux disease without esophagitis; G43.909 Migraine, unspecified, not intractable, without status migrainosus; M19.90 Unspecified osteoarthritis, unspecified site; J44.89 Other specified chronic obstructive pulmonary disease; R56.9 Unspecified convulsions; H40.9 Unspecified glaucoma; Z79.899 Other long term (current) drug therapy; Z87.891 Personal history of nicotine dependence; Z88.0 Allergy status to penicillin
CPT/HCPCS: 80048; 80053; 80061; 80307; 81003; 82962; 83036; 84443; 85025; 86803; 87081; 87340; 99285; G0480